=== PATIENT | female | born 1955 | race Two or more races ===

== ENCOUNTER 2021-01-05 14:57 | Inpatient (IN) | payer OTHER ==
[~2021-01-05] VITALS: Ht 167.6 cm; Wt 59.4 kg
[2021-01-05] MEDS ORDERED: NYST15PO4 TP (15:17)
[2021-01-05] MEDS ORDERED: BISA10SU11 RC (15:17)
[2021-01-05] MEDS ORDERED: NA P133E RC (15:17)
[2021-01-05] MEDS ORDERED: INSU100V7 SQ (15:17)
[2021-01-05] MEDS ORDERED: ACET-868 GT (15:17)
[2021-01-05] MEDS ORDERED: ACET100V5 GT (15:17)
[2021-01-05] MEDS ORDERED: DARB40VI SQ (15:17)
[2021-01-05] MEDS ORDERED: PANT40SU2 GT (15:17)
[2021-01-05] MEDS ORDERED: INSU100V27 SQ (15:17)
[2021-01-05] MEDS ORDERED: METO25TA20 GT (15:17)
[2021-01-05] MEDS ORDERED: AMLO-212 GT (15:17)
[2021-01-05] MEDS ORDERED: MAGN400O6 GT (15:17)
[2021-01-05] MEDS ORDERED: BLOO-668 IN (15:17)
[2021-01-05] MEDS ORDERED: ACET-2605 GT (15:17)
[2021-01-05] MEDS ORDERED: BUME2TAB7 GT (15:17)
[2021-01-05] MEDS ORDERED: HEPA50007 SQ (15:17)
[2021-01-05] MEDS ORDERED: CHLO473M5 MM (15:17)
[2021-01-05] MEDS ORDERED: CHLO118L6 TP (15:17)
[2021-01-05] MEDS ORDERED: IPRA3AMP23 IH ×2 (15:17→15:19)
[2021-01-05] MEDS ORDERED: NUT.237L67 GT (15:17)
[2021-01-05] MEDS ORDERED: ZINC56.713 TP (15:17)
[2021-01-05] MEDS ORDERED: LANS30CA56 GT (15:17)
[2021-01-05] MEDS ORDERED: FAMOTIDINE/PF INJ 20 MG/2 ML VIAL IV ONE ×2 (15:30→15:38)
[2021-01-05] MEDS ORDERED: ONDANSETRON HCL/PF 4 MG/2 ML VIAL IVP ONE (15:30)
[2021-01-05] MEDS ORDERED: IV NS 0.9% 500 ML BAG IV ONE (15:30)
[2021-01-05] MEDS ORDERED: ONDANSETRON HCL/PF 4 MG/2 ML VIAL ONE (15:34)
--- NOTE | 2021-01-05 15:49 | NUR ---
Patient jose alfredo [facility], sent by PMD for severe vomiting. On cool aerosol @ 3lpm, trach, cholectomy tube in placed, peg tube, and callahan cath. Connected to the monitor and pulse ox. Kept comfortable, will continue to monitor accordingly.
[2021-01-05 16:17] LABS: BASOPHILS % (AUTO) 0.3 % (0.0-2.0); EOSINOPHILS % (AUTO) 5.6 % (0.0-6.0); HEMATOCRIT 33 % (33-45); LYMPHOCYTES # (AUTO) 1.2 K/uL (0.8-4.8); LYMPHOCYTES % (AUTO) 11.6 % (20.0-44.0); MEAN CORPUSCULAR HGB CONC 33 g/dl (31.0-36.0); MEAN CORPUSCULAR VOLUME 104 fL (82-100); MONOCYTES # (AUTO) 0.7 K/uL (0.1-1.30); MONOCYTES % (AUTO) 6.5 % (2.0-12.0); NEUTROPHILS # (AUTO) 7.9 K/uL (1.8-8.9); PLATELET COUNT (AUTO) 199 K/uL (150-450); RED BLOOD CELL COUNT(AUTO) 3.18 MIL/uL (4.0-5.2); WHITE BLOOD COUNT (AUTO) 10.4 K/uL (4.3-11.0)
[2021-01-05 16:24] LABS: BILIRUBIN,URINE SMALL (NEGATIVE); COLOR,URINE YELLOW (YELLOW); LEUKOCYTE ESTERASE ,URINE LARGE (NEGATIVE); NITRITE, URINE POSITIVE (NEGATIVE); PROTEIN,URINE >=300 mg/dl (NEGATIVE); UGLUCOSE NEGATIVE (NEGATIVE); UROBILINOGEN,URINE 0.2 EU/dL (0.2)
[2021-01-05 16:34] LABS: ALBUMIN 3.3 g/dL (3.4-5.0); BACTERIA,URINE 4+ /HPF (None Seen); BILIRUBIN,DIRECT 0.2 mg/dL (0.0-0.2); BILIRUBIN,TOTAL 0.6 mg/dL (0.2-1.0); CALCIUM, SERUM 10.9 mg/dL (8.5-10.1); CREATININE 4.4 mg/dL (0.6-1.3); POTASSIUM 3.2 mmol/L (3.5-5.1); RBC,URINE TOO NUMEROUS TO COUN /HPF (0-2); SQUAMOUS EPITHELIAL CELL,UR 0-2 /HPF (None Seen); TOTAL PROTEIN, SERUM 9.2 g/dL (6.4-8.2); WBC,URINE TOO NUMEROUS TO COUN /HPF (0-3)
[2021-01-05 16:43] LABS: EOSINOPHILS % (MANUAL) 8 % (0-4); LYMPHOCYTES % (MANUAL) 11 % (16-48); MONOCYTES % (MANUAL) 6 % (0-11.0); NEUTROPHILS % (MANUAL) 75 (42-76)
[2021-01-05] MEDS ORDERED: CEFTRIAXONE 1GM BAG (ER ONLY) 50 ML IV ONE (16:52)
[2021-01-05] MEDS ORDERED: CEFTRIAXONE 1GM BAG (ER ONLY) 1 GM/50 ML PIGGYBACK IV ONE (17:00)
--- NOTE | 2021-01-05 21:20 | NUR ---
SUP CALLED FOR BED
--- NOTE | 2021-01-05 21:26 | NUR ---
ROOM 314-1
[2021-01-05] MEDS ORDERED: ONDANSETRON HCL/PF 4 MG/2 ML VIAL IVP PRN (21:30)
[2021-01-05] MEDS ORDERED: Z GUARD REMEDY 2 OZ OINT TP PRN (21:30)
[2021-01-05] MEDS ORDERED: ACETAMINOPHEN 650 MG/SUPP.RECT RC PRN (21:30)
--- NOTE | 2021-01-05 21:37 | NUR ---
Pt is going up to unit in [facility] with emtr and rn at bedside w/ acls protocol. NAD noted during transport.
--- NOTE | 2021-01-05 21:37 | NUR ---
report given to niraj by Steven Cabrales.
[2021-01-05 21:40] VITALS: BP 139/69
--- NOTE | 2021-01-05 21:40 | NUR ---
RN Admitting/Opening Notes Patient was brought in to the unit via gurney to the unit at approximately 2140. Patient was transferred to the bed from the [place]. Patient was oriented to the staff and room. Patient's alert and non-verbal. Patient's on cool aerosol at 31pm with no respiratory distress noted. Patient has an IV access on her right hand gauge #18. Patient's in no acute distress at this time. Safety measures in place: Bed locked, bed alarm on, side rails upx3, and call light within reach of the patient. Will continue to monitor the patient.
--- NOTE | 2021-01-05 21:47 | NUR ---
REPORT GIVEN BY TED PATIENT ADMITTED TO HOSPITAL
--- NOTE | 2021-01-05 21:49 | NUR ---
NURSING COMMUTATOR REPAIRER FOR ROOM ASSISGNEMENT.
[2021-01-05] MEDS ORDERED: DEXTROSE 50%-WATER 50 ML DISP.SYRIN IV PRN (22:00)
[2021-01-05] MEDS: BLOOD SUGAR DIAGNOSTIC 1 EACH STRIP IN SCH (22:46)
[2021-01-05] MEDS: INSULIN REGULAR, HUMAN 100 UNIT/ML 3 ML VIAL SQ PRN (22:49)
[2021-01-06] MEDS: IV NS 0.9% 1,000 ML IV PRN ×2 (04:01→11:34)
[2021-01-06] MEDS: INSULIN REGULAR, HUMAN 100 UNIT/ML 3 ML VIAL SQ PRN ×3 (06:17→21:46)
[2021-01-06 06:49] LABS: BASOPHILS % (AUTO) 0.4 % (0.0-2.0); EOSINOPHILS % (AUTO) 6.7 % (0.0-6.0); HEMATOCRIT 29 % (33-45); HEMOGLOBIN 10.1 g/dL (11.5-14.8); LYMPHOCYTES # (AUTO) 1.4 K/uL (0.8-4.8); LYMPHOCYTES % (AUTO) 13.4 % (20.0-44.0); MEAN CORPUSCULAR HGB CONC 34 g/dl (31.0-36.0); MEAN CORPUSCULAR VOLUME 103 fL (82-100); MONOCYTES # (AUTO) 0.7 K/uL (0.1-1.30); MONOCYTES % (AUTO) 6.3 % (2.0-12.0); NEUTROPHILS # (AUTO) 7.7 K/uL (1.8-8.9); NEUTROPHILS % (AUTO) 73.2 % (43.0-81.0); PLATELET COUNT (AUTO) 174 K/uL (150-450); RED BLOOD CELL COUNT(AUTO) 2.83 MIL/uL (4.0-5.2); WHITE BLOOD COUNT (AUTO) 10.5 K/uL (4.3-11.0)
[2021-01-06] MEDS: BLOOD SUGAR DIAGNOSTIC 1 EACH STRIP IN SCH ×4 (07:22→21:45)
[2021-01-06 07:43] LABS: BILIRUBIN,TOTAL 0.5 mg/dL (0.2-1.0); CALCIUM, SERUM 10.2 mg/dL (8.5-10.1); CREATININE 4.9 mg/dL (0.6-1.3); PHOSPHORUS 4.4 mg/dL (2.5-4.9); POTASSIUM 3.5 mmol/L (3.5-5.1); TOTAL PROTEIN, SERUM 8.5 g/dL (6.4-8.2)
[2021-01-06 07:58] VITALS: BP 116/64
--- NOTE | 2021-01-06 08:17 | NUR ---
Oxygen flow decreased from 3 lpm to 2 lpm o2 flow due to 100% saturation. no increase work of breathing noted. Addendum: 01/06/21 at 0818 by DESTINEY GUEVARA RT Amended: Links added.
[2021-01-06] MEDS ORDERED: FAMOTIDINE/PF INJ 20 MG/2 ML VIAL IV SCH (09:00)
[2021-01-06] MEDS ORDERED: ENOXAPARIN SODIUM 30 MG/0.3 ML DISP.SYRIN SQ SCH ×3 (09:00)
[2021-01-06] MEDS: FAMOTIDINE/PF INJ 20 MG/2 ML VIAL IV SCH (09:34)
--- NOTE | 2021-01-06 09:54 | NUR ---
WOUND CARE CONSULT: PT PRESENTS WITH MULTIPLE SKIN ISSUES INCLUDING RASHES WITH OPEN SKIN TO BREASTFOLDS AND GLUTEAL CREASE/BUTTOCKS WELL DEEP TISSUE INJURIES/OPEN BLISTERS TO LEFT BUTTOCK AND THIGH AND RT BUTTOCK, PRESENT ON ADMISSION. RECOMMENDATIONS MADE FOR SKIN PROTECTION AND WOUND CARE. DISCUSSED WITH NURSING STAFF. PT NOTED TO HAVE FRAGILE SKIN WHICH TEARS AND PEELS EASILY. COLLECTION TUBE WITH DRAINAGE BAG NOTED TO RT FLANK, PRESENT ON ADMISSION. MD IN AGREEMENT WITH PLAN OF CARE.
--- NOTE | 2021-01-06 12:00 | NUR ---
m/s diamond selector: md visit seen and examined by dr. quiroz at this time.
--- NOTE | 2021-01-06 12:00 | NUR ---
m/s patent legal assistant: notes christelle espinoza (daughter) notified re: hd tx and provided telephone consent with another nurse as a witness. awaiting order.
--- NOTE | 2021-01-06 14:30 | NUR ---
m/s pv design engineer: nephro consult seen by dr. rosa and will order hd tx and will call his nurse to do it as stated.
[2021-01-06] MEDS: CEFTRIAXONE 1 G in IV D5W 50 ML IV SCH (15:47)
[2021-01-06] MEDS: CLOTRIMAZOLE 1% 15 GM TUBE TP SCH (16:45)
[2021-01-06] MEDS: BUMETANIDE (1 MG) 1 MG TABLET PO SCH (16:45)
--- NOTE | 2021-01-06 16:55 | NUR ---
m/s expressive therapist: notes bs check 150, insulin held due to npo status, pt to get tube feeding when available/delivered to floor. will continue to monitor.
--- NOTE | 2021-01-06 17:50 | NUR ---
m/s viscose cellar worker: notes hd nurse preparing pt's for hd tx at this time.
[2021-01-06 17:53] VITALS: BP 128/64
[2021-01-06] MEDS: ACETYLCYSTEINE 10% SOLN 400 MG/4 ML VIAL IH SCH (18:00)
--- NOTE | 2021-01-06 19:00 | NUR ---
m/s supervisor paper machine: notes hd tx in progress. report given to andrew (rn) for continuity of care.
--- NOTE | 2021-01-06 19:00 | NUR ---
MS RN OPENING NOTE RECEIVED PT AWAKE IN BED. A/ NONVERBAL. PT ON 3LOXYGEN NC. NO SOB NOTED. NO S/S OF RESPIRATORY DISTRESS. PT IS BR. HEMODIALYSIS GOING ON AT THIS TIME, NO C/O PAIN AT THIS TIME. IV ACCESS ON R HAND #18 SL. IV IS INTACT, PATENT, AND FLUSHING WELL. SAFETY MEASURES MAINTAINED. BED IN LOWEST LOCKED POSITION, HOB ELEVATED, SIDE RAILS UP X2. CALL LIGHT AND TABLE WITHIN REACH. WILL CONTINUE WITH PLAN OF CARE.
[2021-01-06] MEDS: CHLORHEXIDINE GLUCONATE 15 ML UDC MM SCH (21:36)
[2021-01-06] MEDS: METOPROLOL TARTRATE 25 MG TABLET GT SCH (21:38)
[2021-01-06] MEDS: HEPARIN SODIUM, PORCINE 5000 UNITS/1 ML VIAL SQ SCH (21:38)
[2021-01-06] MEDS: NEPRO 1,000 ML BOTTLE GT PRN (21:51)
[2021-01-07] MEDS: ACETYLCYSTEINE 10% SOLN 400 MG/4 ML VIAL IH SCH ×4 (05:47→18:00)
[2021-01-07] MEDS: BLOOD SUGAR DIAGNOSTIC 1 EACH STRIP IN SCH ×4 (06:07→22:11)
[2021-01-07] MEDS: INSULIN REGULAR, HUMAN 100 UNIT/ML 3 ML VIAL SQ PRN ×3 (06:10→17:49)
[2021-01-07 06:14] LABS: BASOPHILS % (AUTO) 0.4 % (0.0-2.0); EOSINOPHILS % (AUTO) 6.5 % (0.0-6.0); HEMATOCRIT 29 % (33-45); LYMPHOCYTES # (AUTO) 1.2 K/uL (0.8-4.8); LYMPHOCYTES % (AUTO) 13.4 % (20.0-44.0); MEAN CORPUSCULAR HGB CONC 35 g/dl (31.0-36.0); MEAN CORPUSCULAR VOLUME 104 fL (82-100); MONOCYTES # (AUTO) 0.5 K/uL (0.1-1.30); MONOCYTES % (AUTO) 5.6 % (2.0-12.0); NEUTROPHILS # (AUTO) 6.4 K/uL (1.8-8.9); NEUTROPHILS % (AUTO) 74.1 % (43.0-81.0); PLATELET COUNT (AUTO) 169 K/uL (150-450); RED BLOOD CELL COUNT(AUTO) 2.77 MIL/uL (4.0-5.2); WHITE BLOOD COUNT (AUTO) 8.6 K/uL (4.3-11.0)
[2021-01-07] MEDS: IV NS 0.9% 1,000 ML IV PRN (06:28)
--- NOTE | 2021-01-07 06:30 | NUR ---
RN CLOSING NOTE PT IS AWAKE IN BED, STABLE ALL SHIFT. WILL ENDORSE TO DAY AM NURSE
[2021-01-07 06:45] LABS: CALCIUM, SERUM 9.3 mg/dL (8.5-10.1); CREATININE 2.9 mg/dL (0.6-1.3); PHOSPHORUS 3.2 mg/dL (2.5-4.9); POTASSIUM 3.1 mmol/L (3.5-5.1)
--- NOTE | 2021-01-07 07:17 | NUR ---
RN OPENING NOTE- PT IS ASLEEP. PT ON 3L OXYGEN TRACH AEROSOL. NO SOB NOTED. NO S/S OF RESPIRATORY DISTRESS. PT IS BR. . IV ACCESS ON R HAND #18 SL. IV IS INTACT, PATENT, AND FLUSHING WELL. SAFETY MEASURES MAINTAINED. BED IN LOWEST LOCKED POSITION, HOB ELEVATED, SIDE RAILS UP X2. CALL LIGHT AND TABLE WITHIN REACH. WILL CONTINUE WITH PLAN OF CARE.
[2021-01-07 08:00] VITALS: BP 154/72
[2021-01-07 08:06] LABS: IMMUNOGLOBULIN A, SERUM 336 mg/dL (87-352); IMMUNOGLOBULIN G, SERUM 2911 mg/dL (586-1602); IMMUNOGLOBULIN M, SERUM 101 mg/dL (26-217)
[2021-01-07] MEDS: CHLORHEXIDINE GLUCONATE 15 ML UDC MM SCH ×2 (08:40→20:22)
[2021-01-07] MEDS: METOPROLOL TARTRATE 25 MG TABLET GT SCH ×2 (08:41→20:22)
[2021-01-07] MEDS: BUMETANIDE (1 MG) 1 MG TABLET PO SCH (08:41)
[2021-01-07] MEDS: AMLODIPINE BESYLATE 5 MG TABLET GT SCH (08:44)
[2021-01-07] MEDS: PANTOPRAZOLE 40 MG/PACK PACK GT SCH (08:44)
[2021-01-07] MEDS: FAMOTIDINE/PF INJ 20 MG/2 ML VIAL IV SCH (08:45)
[2021-01-07] MEDS: HEPARIN SODIUM, PORCINE 5000 UNITS/1 ML VIAL SQ SCH ×2 (08:46→20:27)
[2021-01-07] MEDS: CLOTRIMAZOLE 1% 15 GM TUBE TP SCH ×2 (08:58→17:50)
[2021-01-07] MEDS: NYSTATIN TOP POWDER 15 GM BOTTLE TP SCH (08:59)
[2021-01-07] MEDS: ZINC OXIDE 56.7 GM TUBE TP SCH (08:59)
[2021-01-07] MEDS ORDERED: FAMOTIDINE/PF INJ 20 MG/2 ML VIAL IV SCH (09:00)
--- NOTE | 2021-01-07 10:20 | NUR ---
RN NOTE- PT TRACH SX AT THIS TIME . SECRETIONS REMOVED. TOLERATED WELL
[2021-01-07 11:07] LABS: *SPE A/G RATIO 0.6 (0.7-1.7); *SPE ALPHA-1-GLOBULIN 0.3 g/dL (0.0-0.4); *SPE ALPHA-2-GLOBULIN 0.9 g/dL (0.4-1.0); *SPE BETA GLOBULIN 1.1 g/dL (0.7-1.3); *SPE M-SPIKE Not Observed g/dL (Not Observed)
--- NOTE | 2021-01-07 13:09 | NUR ---
RN NOTE- PT TRACH SX AT THIS TIME . SECRETIONS REMOVED. TOLERATED WELL
[2021-01-07] MEDS: POTASSIUM CL. PREMIX PERIPHER. 50 ML IV SCH ×3 (14:53→17:13)
--- NOTE | 2021-01-07 15:02 | NUR ---
WV K+ 3.1. KCL SUPPLEMENTATION 30MEQ ON ORDER. FIRST BAG INITIATED
[2021-01-07 15:50] VITALS: BP 138/77
[2021-01-07] MEDS: CEFTRIAXONE 1 G in IV D5W 50 ML IV SCH (17:58)
--- NOTE | 2021-01-07 18:28 | NUR ---
RN CLOSING NOTE- PT IS ASLEEP. PT ON 3L OXYGEN TRACH AEROSOL. NO SOB NOTED. NO S/S OF RESPIRATORY DISTRESS. PERIODICALLY SX TODAY TO REMOVE SECRETIONS. PT IS BR. . IV ACCESS ON R HAND #18 SL. IV IS INTACT, PATENT, AND FLUSHING WELL. SAFETY MEASURES MAINTAINED. BED IN LOWEST LOCKED POSITION, HOB ELEVATED, SIDE RAILS UP X2. CALL LIGHT AND TABLE WITHIN REACH. WILL GIVE REPORT TO ANASTASIA JOHNSON.
--- NOTE | 2021-01-07 19:28 | NUR ---
RT NOTE TX NOT GIVEN DUE TO PENDING PCR RESULTS. SX DONE, TRACH SECURED AND PATENT. NO RESPIRATORY DISTRESS NOTED.
--- NOTE | 2021-01-07 19:38 | NUR ---
MS RN OPENING NOTE PATIENT IN BED, EYE OPENING, NON-VERBAL. NO S/S OF APPARENT DISTRESS --TOLERATING TRACH IN 3LPM O2 PATIENT HAVING A LOT OF SECRETIONS. NOT EXHIBITING PAIN VIA FLACC. IV NS RUNNING @50 ML/HR. G-TUBE RUNNING NEPRO @40ML/HR. SIEGEL DRAINING JASMYN COLORED URINE. SAFETY IN PLACE. WILL CONTINUE TO MONITOR.
[2021-01-07 20:00] VITALS: BP 140/71
[2021-01-08] MEDS: ACETYLCYSTEINE 10% SOLN 400 MG/4 ML VIAL IH SCH ×3 (01:00→20:04)
--- NOTE | 2021-01-08 04:08 | NUR ---
ms rn notes s3izpsd of suctioning done.
[2021-01-08] MEDS: IV NS 0.9% 1,000 ML IV PRN (04:29)
[2021-01-08 06:39] LABS: BASOPHILS % (AUTO) 0.4 % (0.0-2.0); EOSINOPHILS % (AUTO) 6.1 % (0.0-6.0); HEMATOCRIT 31 % (33-45); HEMOGLOBIN 10.9 g/dL (11.5-14.8); LYMPHOCYTES # (AUTO) 1.3 K/uL (0.8-4.8); LYMPHOCYTES % (AUTO) 17.9 % (20.0-44.0); MEAN CORPUSCULAR HGB CONC 35 g/dl (31.0-36.0); MEAN CORPUSCULAR VOLUME 103 fL (82-100); MONOCYTES # (AUTO) 0.4 K/uL (0.1-1.30); MONOCYTES % (AUTO) 5.9 % (2.0-12.0); NEUTROPHILS # (AUTO) 5.2 K/uL (1.8-8.9); NEUTROPHILS % (AUTO) 69.7 % (43.0-81.0); PLATELET COUNT (AUTO) 165 K/uL (150-450); RED BLOOD CELL COUNT(AUTO) 3.05 MIL/uL (4.0-5.2); WHITE BLOOD COUNT (AUTO) 7.5 K/uL (4.3-11.0)
[2021-01-08] MEDS: BLOOD SUGAR DIAGNOSTIC 1 EACH STRIP IN SCH ×4 (07:13→22:00)
[2021-01-08] MEDS: INSULIN REGULAR, HUMAN 100 UNIT/ML 3 ML VIAL SQ PRN ×2 (07:17→12:53)
--- NOTE | 2021-01-08 07:23 | NUR ---
blood sugar 184. given 3 units of insulin per sliding scale.
[2021-01-08 07:36] LABS: POTASSIUM 3.6 mmol/L (3.5-5.1)
[2021-01-08 07:37] LABS: CALCIUM, SERUM 9.5 mg/dL (8.5-10.1); MAGNESIUM 2.2 mg/dL (1.8-2.4); PHOSPHORUS 3.8 mg/dL (2.5-4.9)
--- NOTE | 2021-01-08 07:48 | NUR ---
closing note rn report given to Katerina for cont. of care.
--- NOTE | 2021-01-08 07:55 | NUR ---
MS/RN OPENING NOTE RECEIVED PATIENT IN BED, EYE OPENING, NON-VERBAL. NO S/S OF APPARENT DISTRESS --TOLERATING TRACH WITH 3LPM OF O2. NOT EXHIBITING PAIN VIA FLACC. IV ACCESS ON LEFT FOREARM #20G WITH NS RUNNING @50 ML/HR. G-TUBE RUNNING NEPRO @40ML/HR. SIEGEL DRAINING JASMYN COLORED URINE. SAFETY MEASURES IN PLACE. WILL CONTINUE TO MONITOR.
[2021-01-08 08:11] VITALS: BP 145/76
--- NOTE | 2021-01-08 08:28 | NUR ---
RT Pt received trached on T-Piece with adequate SpO2. BVM and spare trach by bedside. No SOB or respiratory distress noted. Addendum: 01/08/21 at 1614 by KWABENA SWAN RT Amended: Links added.
[2021-01-08] MEDS: FAMOTIDINE/PF INJ 20 MG/2 ML VIAL IV SCH (08:39)
[2021-01-08] MEDS: CHLORHEXIDINE GLUCONATE 15 ML UDC MM SCH ×2 (08:39→20:59)
[2021-01-08] MEDS: PANTOPRAZOLE 40 MG/PACK PACK GT SCH (08:39)
[2021-01-08] MEDS: BUMETANIDE (1 MG) 1 MG TABLET PO SCH (08:40)
[2021-01-08] MEDS: AMLODIPINE BESYLATE 5 MG TABLET GT SCH (08:40)
[2021-01-08] MEDS: METOPROLOL TARTRATE 25 MG TABLET GT SCH ×2 (08:40→21:00)
[2021-01-08] MEDS: HEPARIN SODIUM, PORCINE 5000 UNITS/1 ML VIAL SQ SCH ×2 (08:42→21:06)
[2021-01-08] MEDS: NYSTATIN TOP POWDER 15 GM BOTTLE TP SCH (08:45)
[2021-01-08] MEDS: CLOTRIMAZOLE 1% 15 GM TUBE TP SCH ×2 (08:45→18:25)
[2021-01-08] MEDS: ZINC OXIDE 56.7 GM TUBE TP SCH (08:45)
[2021-01-08] MEDS ORDERED: DOSING PER PHARMACY-AMIKACI IV XX PRN (15:00)
--- NOTE | 2021-01-08 15:10 | NUR ---
MS/RN NOTES- CONTACT ISOLATION LABS CALLED AND NOTIFIED THAT PATIENT HAS TESTED POSITIVE FOR CRE IN THE URINE. NOTIFIED DR. GRACIELA VÁZQUEZ AND THE MD FOR INFECTION CONTROL. PATIENT IS NOW ON CONTACT ISOLATION. WILL CONTINUE TO MONITOR.
[2021-01-08] MEDS ORDERED: AMIKACIN 300 MG in IV D5W 100 ML IV PRN (15:30)
[2021-01-08] MEDS ORDERED: AMIKACIN 300 MG in IV D5W 100 ML IV ONE (16:00)
--- NOTE | 2021-01-08 19:30 | NUR ---
MS RN OPENING NOTE RECEIVED PATIENT IN BED AWAKE BUT NON-VERBAL. GETTING HEMODIALYSIS AT THIS TIME. NO S/S OF APPARENT DISTRESS IN TRACH 3LPM OF OXYGEN. NOT EXHIBITING PAIN. BY THE BEDSIDE. SIEGEL DRAINING JASMYN URINE. NO FLUIDS RUNNING AT THIS TIME. G-TUBE CLAMPED AT THIS TIME. SAFETY IN PLACE. WILL CONTINUE TO MONITOR.
--- NOTE | 2021-01-08 19:37 | NUR ---
MS/RN CLOSING NOTE PATIENT IN BED, EYE OPENING, NON-VERBAL. NO S/S OF APPARENT DISTRESS --TOLERATING TRACH WITH 3LPM OF O2. NOT EXHIBITING PAIN VIA FLACC. IV ACCESS ON LEFT FOREARM #20G WITH NS RUNNING @50 ML/HR. G-TUBE RUNNING NEPRO @40ML/HR. SIEGEL CATHETER REPLACED TODAY AT 1400 PER MD ORDER, DRAINING JASMYN COLORED URINE. DOING HEMODIALYSIS RIGHT NOW. SAFETY MEASURES IN PLACE. WILL ENDORSE TO THE NEXT SHIFT FOR NIKOLE.
[2021-01-08 20:00] VITALS: BP_SYST 118
--- NOTE | 2021-01-08 20:35 | NUR ---
MS RN NOTE HD FINISHED AT THIS TIME. 578 (0.6) CC OUT.
[2021-01-08] MEDS: NEPRO 1,000 ML BOTTLE GT PRN (20:59)
--- NOTE | 2021-01-08 22:10 | NUR ---
rn note amikacin random ordered STAT.
[2021-01-09] MEDS: ACETYLCYSTEINE 10% SOLN 400 MG/4 ML VIAL IH SCH ×4 (00:36→19:53)
[2021-01-09] MEDS: IV NS 0.9% 1,000 ML IV PRN (03:42)
[2021-01-09] MEDS: BLOOD SUGAR DIAGNOSTIC 1 EACH STRIP IN SCH ×3 (06:08→17:37)
[2021-01-09] MEDS: INSULIN REGULAR, HUMAN 100 UNIT/ML 3 ML VIAL SQ PRN ×3 (06:35→17:37)
--- NOTE | 2021-01-09 06:39 | NUR ---
blood sugar 199. given regular insulin 3 Units.
[2021-01-09 07:21] LABS: CALCIUM, SERUM 8.1 mg/dL (8.5-10.1); CREATININE 1.7 mg/dL (0.6-1.3)
--- NOTE | 2021-01-09 07:24 | NUR ---
no significant change. report given to Katerina for cont. of care
[2021-01-09 07:30] LABS: POTASSIUM 2.8 mmol/L (3.5-5.1)
--- NOTE | 2021-01-09 07:42 | NUR ---
MS/RN OPENING NOTE RECEIVED PATIENT IN BED, EYE OPENING, NON-VERBAL. NO S/S OF APPARENT DISTRESS --TOLERATING TRACH WITH 5LPM OF O2. NOT EXHIBITING PAIN VIA FLACC. IV ACCESS ON LEFT FOREARM #20G WITH NS RUNNING @50 ML/HR. G-TUBE RUNNING NEPRO @40ML/HR. SIEGEL DRAINING JASMYN COLORED URINE. SAFETY MEASURES IN PLACE. WILL CONTINUE TO MONITOR.
[2021-01-09] MEDS ORDERED: FAMOTIDINE (20 MG) 20 MG TABLET GT SCH (09:00)
[2021-01-09] MEDS: BUMETANIDE (1 MG) 1 MG TABLET PO SCH (09:20)
[2021-01-09] MEDS: PANTOPRAZOLE 40 MG/PACK PACK GT SCH (09:20)
[2021-01-09] MEDS: CHLORHEXIDINE GLUCONATE 15 ML UDC MM SCH (09:20)
[2021-01-09] MEDS: AMLODIPINE BESYLATE 5 MG TABLET GT SCH ×2 (09:21→20:30)
[2021-01-09] MEDS: METOPROLOL TARTRATE 25 MG TABLET GT SCH ×2 (09:21→19:51)
[2021-01-09] MEDS: HEPARIN SODIUM, PORCINE 5000 UNITS/1 ML VIAL SQ SCH (09:22)
[2021-01-09] MEDS: POTASSIUM CL. PREMIX PERIPHER. 50 ML IV SCH ×5 (09:54→14:04)
[2021-01-09] MEDS: CLOTRIMAZOLE 1% 15 GM TUBE TP SCH ×2 (09:54→17:37)
[2021-01-09] MEDS: ZINC OXIDE 56.7 GM TUBE TP SCH (09:54)
[2021-01-09] MEDS: NYSTATIN TOP POWDER 15 GM BOTTLE TP SCH (09:55)
[2021-01-09] MEDS ORDERED: AMIK250V13 IV (12:23)
--- NOTE | 2021-01-09 18:51 | NUR ---
MS/RN OPENING NOTE PATIENT IN BED, EYE OPENING, NON-VERBAL. NO S/S OF APPARENT DISTRESS --TOLERATING TRACH WITH 5LPM OF O2. NOT EXHIBITING PAIN VIA FLACC. IV ACCESS ON LEFT FOREARM #20G WITH NS RUNNING @50 ML/HR. G-TUBE RUNNING NEPRO @40ML/HR. SIEGEL DRAINING JASMYN COLORED URINE. SAFETY MEASURES IN PLACE. PATIENT IS MEDICALLY STABLE FOR DISCHARGE BACK TO [facility], ENDORSEMENTS ALREADY CALLED IN TO DOTTIE URRUTIA CHARGE NURSE AT THE [facility] AT 1600. COMPOSITION STONE APPLICATOR TIME IS AT 1900. WILL ENDORSE PATIENT TO THE NEXT SHIFT. Addendum: 01/09/21 at 1853 by BETSY MARTINES RN ERROR
--- NOTE | 2021-01-09 18:53 | NUR ---
MS/RN CLOSING NOTE PATIENT IN BED, EYE OPENING, NON-VERBAL. NO S/S OF APPARENT DISTRESS --TOLERATING TRACH WITH 5LPM OF O2. NOT EXHIBITING PAIN VIA FLACC. IV ACCESS ON LEFT FOREARM #20G WITH NS RUNNING @50 ML/HR. G-TUBE RUNNING NEPRO @40ML/HR. SIEGEL DRAINING JASMYN COLORED URINE. SAFETY MEASURES IN PLACE. PATIENT IS MEDICALLY STABLE FOR DISCHARGE BACK TO [facility], ENDORSEMENTS ALREADY CALLED IN TO DOTTIE URRUTIA CHARGE NURSE AT THE [facility] AT 1600. CONTROL SYSTEMS SPECIALIST TIME IS AT 1900. WILL ENDORSE PATIENT TO THE NEXT SHIFT.
--- NOTE | 2021-01-09 20:40 | NUR ---
RN NOTES BP 162/84 77 GIVEN METOPROLOL EARLIER, GIVEN NORVASC 5 MG VIA GT, RECHECKED BP 149/73. FOR DISCHARGE TONIGHT, AMBULANCE AT THE BEDSIDE, RT AT THE BEDSIDE, NO DISTRESS, PERIPHERAL IV LINE KEPT TO CONTINUE ANTIBIOTIC, SIEGEL CATHETER IN PLACE. NO BELONGINGS.
[2021-01-09 20:41] VITALS: BP 149/73
[2021-01-27] MEDS ORDERED: INSULIN REGULAR, HUMAN 100 UNIT/ML 3 ML VIAL SQ PRN (15:00)
[2021-01-27] MEDS ORDERED: DEXTROSE 50%-WATER 50 ML DISP.SYRIN IV PRN (15:00)
[2021-01-27] MEDS ORDERED: BLOOD SUGAR DIAGNOSTIC 1 EACH STRIP IN SCH (17:30)
== END 2021-01-09 20:40 | DRG 689 ==
LOC: ER 15:05 → TELE 21:35 → MED 21:52
PROVIDERS: ADMIT Hospitalist; ATTEND Nurse Practitioner Acute Care
PROC: 5A1D70Z Performance of Urinary Filtration, Intermittent, Less than 6 Hours Per Day (ICD-10-PCS; principal; 2021-01-06)
DX: N39.0 Urinary tract infection, site not specified (principal); R53.2 Functional quadriplegia; N18.6 End stage renal disease; J96.10 Chronic respiratory failure, unspecified whether with hypoxia or hypercapnia; J98.11 Atelectasis; I12.0 Hypertensive chronic kidney disease with stage 5 chronic kidney disease or end stage renal disease; K57.92 Diverticulitis of intestine, part unspecified, without perforation or abscess without bleeding; J90 Pleural effusion, not elsewhere classified; G93.49 Other encephalopathy; M84.48XA Pathological fracture, other site, initial encounter for fracture; Z16.19 Resistance to other specified beta lactam antibiotics; E86.0 Dehydration; E11.22 Type 2 diabetes mellitus with diabetic chronic kidney disease; E83.52 Hypercalcemia; Z66 Do not resuscitate; Z74.01 Bed confinement status; Z86.73 Personal history of transient ischemic attack (TIA), and cerebral infarction without residual deficits; Z87.440 Personal history of urinary (tract) infections; R13.10 Dysphagia, unspecified; Z93.1 Gastrostomy status; Z90.49 Acquired absence of other specified parts of digestive tract; Z98.2 Presence of cerebrospinal fluid drainage device; Z99.2 Dependence on renal dialysis; Z20.822 Contact with and (suspected) exposure to COVID-19; E87.6 Hypokalemia; Z93.0 Tracheostomy status; R16.0 Hepatomegaly, not elsewhere classified; K59.00 Constipation, unspecified; B96.1 Klebsiella pneumoniae [K. pneumoniae] as the cause of diseases classified elsewhere; Z79.4 Long term (current) use of insulin; D53.9 Nutritional anemia, unspecified
CPT/HCPCS: 31720; 36415; 71045-TC; 76770-TC; 80048-TC; 80053-TC; 80061-TC; 80076-TC; 80150; 81001; 82784; 82962-TC; 83690-TC; 83735-TC; 83970; 84100-TC; 84155; 84165; 85025-TC; 86334; 86706; 87040-TC; 87081-TC; 87086-TC; 87186-TC; 87340; 90935-TC; 94640-TC; 94664-TC; 94799-TC; A4623; A6253; A7526; C9803; G0378; J0278; J0696; J1644; J1815; J2405; J3480; J3490; J7030; J7040; J7050; J7060; U0003

== ENCOUNTER 2021-01-27 11:27 | Inpatient (IN) | payer OTHER ==
[~2021-01-27] VITALS: Ht 167.6 cm; Wt 64.0 kg
[~2021-01-27 11:27] MED LIST: ACET-2605 GT; ACET-868 GT; ACET100V5 GT; AMIK250V13 IV; AMLO-212 GT; BISA10SU11 RC; BLOO-668 IN; BUME2TAB7 GT; CHLO118L6 TP; CHLO473M5 MM; DARB40VI SQ; HEPA50007 SQ; INSU100V27 SQ; INSU100V7 SQ; IPRA3AMP23 IH; LANS30CA56 GT; MAGN400O6 GT; METO25TA20 GT; NA P133E RC; NUT.237L67 GT; NYST15PO4 TP; PANT40SU2 GT; ZINC56.713 TP
--- NOTE | 2021-01-27 11:30 | NUR ---
leonel, from [facility], noticed vomitted blood x 5 today. On cool aerosol at 6lpm. connected to the monitor and pulse ox. Kept comfortable, will continue to monitor accordingly.
--- NOTE | 2021-01-27 11:55 | NUR ---
MOVE SHEET SUBMITTED.
[2021-01-27] MEDS ORDERED: PIPERACILLIN /TAZOBACTAM 3.375 G in IV D5W 50 ML IV ONE (12:00)
[2021-01-27] MEDS ORDERED: IV NS 0.9% 500 ML BAG IV ONE (12:00)
[2021-01-27] MEDS ORDERED: VANCOMYCIN 1 GM in IV D5W 250 ML IV ONE (12:00)
[2021-01-27] MEDS ORDERED: ZINC1CAP3 GT (12:03)
[2021-01-27] MEDS ORDERED: CRAN3875 GT (12:03)
[2021-01-27] MEDS ORDERED: FOLI0.8T23 GT (12:03)
[2021-01-27] MEDS ORDERED: AMIN30LI2 GT (12:03)
[2021-01-27] MEDS ORDERED: MENT71OI2 TP (12:06)
[2021-01-27 12:14] LABS: BASOPHILS # (AUTO) 0.1 K/uL (0.0-0.2); BASOPHILS % (AUTO) 0.8 % (0.0-2.0); EOSINOPHILS % (AUTO) 4.8 % (0.0-6.0); HEMATOCRIT 37 % (33-45); HEMOGLOBIN 12.3 g/dL (11.5-14.8); LYMPHOCYTES # (AUTO) 1.4 K/uL (0.8-4.8); LYMPHOCYTES % (AUTO) 17.2 % (20.0-44.0); MEAN CORPUSCULAR HGB CONC 33 g/dl (31.0-36.0); MEAN CORPUSCULAR VOLUME 106 fL (82-100); MONOCYTES # (AUTO) 0.6 K/uL (0.1-1.30); MONOCYTES % (AUTO) 7.8 % (2.0-12.0); NEUTROPHILS # (AUTO) 5.6 K/uL (1.8-8.9); NEUTROPHILS % (AUTO) 69.4 % (43.0-81.0); PLATELET COUNT (AUTO) 175 K/uL (150-450); RED BLOOD CELL COUNT(AUTO) 3.49 MIL/uL (4.0-5.2); WHITE BLOOD COUNT (AUTO) 8.1 K/uL (4.3-11.0)
[2021-01-27 12:25] LABS: CALCIUM, SERUM 9.4 mg/dL (8.5-10.1); CARBON DIOXIDE 23 mmol/L (21-32); CHLORIDE 105 mmol/L (98-107); CREATININE 2.7 mg/dL (0.6-1.3); GLUCOSE 165 mg/dL (74-106); POTASSIUM 3.1 mmol/L (3.5-5.1); SODIUM SERUM 140 mmol/L (136-145); UREA NITROGEN, BLOOD 52 mg/dL (7-18)
[2021-01-27 12:32] LABS: ALANINE AMINOTRANSFERASE 17 U/L (12-78); ALKALINE PHOSPHATASE 113 U/L (46-116); ASPARTATE AMINOTRANSFERASE 21 U/L (15-37); BILIRUBIN,DIRECT 0.1 mg/dL (0.0-0.2); BILIRUBIN,TOTAL 0.4 mg/dL (0.2-1.0); TOTAL PROTEIN, SERUM 8.1 g/dL (6.4-8.2)
[2021-01-27 12:33] LABS: BILIRUBIN,URINE SMALL (NEGATIVE); COLOR,URINE YELLOW (YELLOW); LEUKOCYTE ESTERASE ,URINE Large (NEGATIVE); NITRITE, URINE Negative (NEGATIVE); PH,URINE 5.5 (5.0-8.0); PROTEIN,URINE >=300 mg/dl (NEGATIVE); UGLUCOSE Negative (NEGATIVE); UROBILINOGEN,URINE 0.2 EU/dL (0.2)
--- NOTE | 2021-01-27 12:49 | NUR ---
covid swab collected and sent to lab.
[2021-01-27 12:55] LABS: BACTERIA,URINE Moderate /HPF (None Seen); SQUAMOUS EPITHELIAL CELL,UR Few /HPF (None Seen); WBC,URINE 81-100 /HPF (0-3)
[2021-01-27 12:56] LABS: URINE AMORPHOUS URATE Many /HPF (None Seen)
--- NOTE | 2021-01-27 13:04 | NUR ---
Paged [facility], Dr. Contreras on-call. Awaiting for call back.
--- NOTE | 2021-01-27 14:15 | NUR ---
report given to Joseph JOHNSON for shannon.
[2021-01-27] MEDS ORDERED: ACETAMINOPHEN 325 MG TABLET PO PRN (14:30)
[2021-01-27] MEDS ORDERED: ONDANSETRON HCL/PF 4 MG/2 ML VIAL IVP PRN (14:30)
[2021-01-27] MEDS ORDERED: MORPHINE SULFATE INJ 2 MG/ML DISP.SYRIN IV PRN (14:30)
[2021-01-27] MEDS ORDERED: NEPRO VAN 237 ML CAN GT SCH (14:30)
[2021-01-27] MEDS ORDERED: ACETAMINOPHEN ES 500 MG TABLET GT PRN (14:30)
[2021-01-27] MEDS ORDERED: LABETALOL HCL IV 100MG VIAL IV PRN (15:00)
[2021-01-27] MEDS ORDERED: ALBUTEROL FS 2.5 MG/3 ML VIAL.NEB NEB PRN (15:00)
[2021-01-27] MEDS ORDERED: DEXTROSE 50%-WATER 50 ML DISP.SYRIN IV PRN (15:00)
[2021-01-27] MEDS ORDERED: IPRATROPIUM NEB FS 0.5 MG/2.5 ML AMPUL.NEB NEB PRN (15:00)
--- NOTE | 2021-01-27 15:15 | NUR ---
BRUSH CLEARER SURVEYING NOTE Received patient from ER via gurney, Patient is Alert to stimuli-not oriented-nonverbal, no respiratory distress, no SOB, on trach shiley 8 on 3 liters via NC. Has F/C 16F/10cc, Gtube, right upper chest dialysis permacath, Left forearm IV site 20G, Right AC IV 20g, MASD on perineal area scattered, MASD on sacro-coccyx scattered, Rash on back scattered. Head of bed maintained elevated 45 degrees. Cleaned and repositioned, Safety precautions implemented, bed locked in lowest position, call light within reach. v/s T 97.7 F, P 68, R 18, 02 100%, BP 177/80, Pain non verbal.
[2021-01-27] MEDS: ALBUTEROL FS 2.5 MG/3 ML VIAL.NEB NEB SCH ×3 (15:30→23:30)
[2021-01-27] MEDS: IPRATROPIUM NEB FS 0.5 MG/2.5 ML AMPUL.NEB NEB SCH ×3 (15:30→23:30)
[2021-01-27] MEDS: BLOOD SUGAR DIAGNOSTIC 1 EACH STRIP IN SCH ×3 (15:58→21:40)
[2021-01-27] MEDS: CEFEPIME 1 GM in IV D5W 50 ML IV SCH (17:32)
[2021-01-27 18:00] VITALS: BP 177/80
--- NOTE | 2021-01-27 18:00 | NUR ---
F/C Indwelling cath 16F/10cc changed today in aseptic technique, urine flowback with sediments. Procedure tolerated well.
[2021-01-27] MEDS: INSULIN REGULAR, HUMAN 100 UNIT/ML 3 ML VIAL SQ PRN ×2 (18:26→21:39)
[2021-01-27] MEDS: hydrALAZINE HCL IV 20 MG VIAL IV PRN (18:32)
--- NOTE | 2021-01-27 18:32 | NUR ---
RN NOTE B/P 177/80-Hydralazine IV PRN administered.
--- NOTE | 2021-01-27 18:55 | NUR ---
NOTCHED BLADE LOADER CLOSING NOTE Pt is awake, Alert avril stimuli, non oriented, non verbal. On T-Piece on 3 liters satting >95%. HOB maintained elevated, enteral feeding nephro 45cc/hr started, F/C in place, right upper chest permacath in place, IV site clean with no s/sx of infiltration. 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 Telereading sinus rhythm. Safety precautions implemented, bed locked in lowest position, call light within reach.
[2021-01-27] MEDS: NEPRO 1,000 ML BOTTLE GT SCH (19:02)
--- NOTE | 2021-01-27 19:30 | NUR ---
1930 albuterol and atrovent breathing tx not administered due to pending pcr
--- NOTE | 2021-01-27 19:33 | NUR ---
RN NOTE PATIENT IN ROOM WITH HEAD OF BED ELEVATED. AWAKE, ALERT TO STIMULI. NON VERBAL. ON T-PIECE 3L VIA NASAL CANNULA, NO SIGNS OF ACUTE DISTRESS. WITH GTUBE RUNNING NEPHRO @ 45CC/HR, POSITIVE PLACEMENT VIA AUSCULTATION. SIEGEL CATH PATENT AND INTACT DRAINING URINE VIA GRAVITY. RIGHT UPPER CHEST PERMACATH IN PLACE, DRESSING DRY. IV ACCESS ON LEFT AC AND RIGHT FOREARM, NO SIGNS OF INFILTRATION. BED LOCKED AND IN LOWEST POSITION. CALL LIGHT WITHIN REACH. ALL NEEDS ANTICIPATED.
[2021-01-27 20:00] VITALS: BP 129/54
[2021-01-27 21:15] LABS: HEMOGLOBIN 11.9 g/dL (11.5-14.8)
[2021-01-27] MEDS: METOPROLOL TARTRATE 25 MG TABLET GT SCH (21:21)
[2021-01-27] MEDS: PANTOPRAZOLE 40 MG/PACK PACK GT SCH (21:21)
[2021-01-27] MEDS: CHLORHEXIDINE GLUCONATE 15 ML UDC MM SCH (21:22)
[2021-01-27] MEDS: HEPARIN SODIUM, PORCINE 5000 UNITS/1 ML VIAL SQ SCH (21:22)
--- NOTE | 2021-01-27 23:30 | NUR ---
2330 albuterol and atrovent breathing tx not administered due to pending pcr
[2021-01-28] VITALS: BP 134/57
[2021-01-28] MEDS: ALBUTEROL FS 2.5 MG/3 ML VIAL.NEB NEB SCH ×6 (03:30→22:41)
[2021-01-28] MEDS: IPRATROPIUM NEB FS 0.5 MG/2.5 ML AMPUL.NEB NEB SCH ×6 (03:30→22:41)
--- NOTE | 2021-01-28 03:30 | NUR ---
0330 albuterol and atrovent breathing tx not administered due to pending pcr
[2021-01-28 04:00] VITALS: BP 135/57
--- NOTE | 2021-01-28 06:37 | NUR ---
RN NOTE PATIENT OBTUNDED, NON VERBAL. ON T-PIECE 3L VIA NASAL CANNULA, O2 SAT 100%. WITH GTUBE RUNNING NEPHRO @ 45CC/HR, NO RESIDUAL NOTED. SIEGEL CATH PATENT AND INTACT DRAINING URINE OUTPUT 50ML. RIGHT UPPER CHEST PERMACATH IN PLACE, DRESSING DRY. IV ACCESS ON LEFT AC AND RIGHT FOREARM, NO SIGNS OF INFILTRATION. TURNED AND REPOSITIONED. BED LOCKED AND IN LOWEST POSITION. CALL LIGHT WITHIN REACH. WILL ENDORSE TO AM SHIFT.
[2021-01-28 06:52] LABS: ALBUMIN 2.8 g/dL (3.4-5.0); BILIRUBIN,TOTAL 0.5 mg/dL (0.2-1.0); CALCIUM, SERUM 9.1 mg/dL (8.5-10.1); CREATININE 2.9 mg/dL (0.6-1.3); MAGNESIUM 2.7 mg/dL (1.8-2.4); PHOSPHORUS 4.2 mg/dL (2.5-4.9); TOTAL PROTEIN, SERUM 7.6 g/dL (6.4-8.2)
--- NOTE | 2021-01-28 07:19 | NUR ---
RN OPENING NOTE PATIENT IN BED, OBTUNDED, NON VERBAL. ON 3L VIA NASAL CANNULA WITH NO SIGNS OF LABORED BREATHING AT THIS TIME. GTUBE IN PLACE RUNNING NEPHRO AT 45 ML/HR, SIEGEL CATH IN PLACE. IV ACCESS ON LEFT AC AND RIGHT FOREARM. BED LOCKED AND IN LOWEST POSITION. CALL LIGHT WITHIN REACH. ALL SAFETY MEASURES IMPLEMENTED.
[2021-01-28 08:01] VITALS: BP 152/66
[2021-01-28] MEDS: BLOOD SUGAR DIAGNOSTIC 1 EACH STRIP IN SCH ×4 (08:18→21:21)
[2021-01-28] MEDS: CHLORHEXIDINE GLUCONATE 15 ML UDC MM SCH ×2 (08:22→20:57)
[2021-01-28] MEDS: CHLORHEXIDINE GLUCONATE 4% 118 ML BOTTLE TP SCH (08:23)
[2021-01-28] MEDS: PANTOPRAZOLE 40 MG/PACK PACK GT SCH ×2 (08:23→20:57)
[2021-01-28] MEDS: NYSTATIN TOP POWDER 15 GM BOTTLE TP SCH (08:23)
[2021-01-28] MEDS: BUMETANIDE (1 MG) 1 MG TABLET GT SCH (08:23)
[2021-01-28] MEDS: AMLODIPINE BESYLATE 5 MG TABLET GT SCH (08:24)
[2021-01-28] MEDS: METOPROLOL TARTRATE 25 MG TABLET GT SCH ×2 (08:24→20:57)
[2021-01-28] MEDS: HEPARIN SODIUM, PORCINE 5000 UNITS/1 ML VIAL SQ SCH ×2 (08:25→21:00)
[2021-01-28] MEDS: INSULIN REGULAR, HUMAN 100 UNIT/ML 3 ML VIAL SQ PRN ×4 (08:26→21:38)
--- NOTE | 2021-01-28 08:44 | NUR ---
RN NOTE URINE COLLECTED. AWAITING LAB INSOLE TAPER.
[2021-01-28 09:48] LABS: BASOPHILS % (AUTO) 0.4 % (0.0-2.0); EOSINOPHILS % (AUTO) 6.4 % (0.0-6.0); HEMATOCRIT 36 % (33-45); HEMOGLOBIN 11.8 g/dL (11.5-14.8); LYMPHOCYTES # (AUTO) 0.9 K/uL (0.8-4.8); MEAN CORPUSCULAR HGB CONC 33 g/dl (31.0-36.0); MEAN CORPUSCULAR VOLUME 107 fL (82-100); MONOCYTES # (AUTO) 0.6 K/uL (0.1-1.30); MONOCYTES % (AUTO) 8.5 % (2.0-12.0); NEUTROPHILS # (AUTO) 5.1 K/uL (1.8-8.9); NEUTROPHILS % (AUTO) 71.7 % (43.0-81.0); PLATELET COUNT (AUTO) 169 K/uL (150-450); RED BLOOD CELL COUNT(AUTO) 3.34 MIL/uL (4.0-5.2); WHITE BLOOD COUNT (AUTO) 7.1 K/uL (4.3-11.0)
[2021-01-28] MEDS ORDERED: ACYCLOVIR IV 1 GM in IV D5W 250 ML IV SCH (12:30)
--- NOTE | 2021-01-28 15:26 | NUR ---
RN NOTE VZV PCR COLLECTED FROM LEFT FLANKS BLISTERS. DELIVERED TO LAB
[2021-01-28 16:00] VITALS: BP 146/68
[2021-01-28] MEDS: CEFEPIME 1 GM in IV D5W 50 ML IV SCH (16:30)
[2021-01-28 17:04] LABS: BILIRUBIN,URINE SMALL (NEGATIVE); COLOR,URINE YELLOW (YELLOW); LEUKOCYTE ESTERASE ,URINE MODERATE (NEGATIVE); NITRITE, URINE NEGATIVE (NEGATIVE); PROTEIN,URINE >=300 mg/dl (NEGATIVE); UGLUCOSE NEGATIVE (NEGATIVE); UROBILINOGEN,URINE 0.2 EU/dL (0.2)
--- NOTE | 2021-01-28 18:38 | NUR ---
RN CLOSING NOTE PATIENT IN BED, OBTUNDED, NON VERBAL. ON T-PIECE 3L VIA NASAL CANNULA, O2 SAT 100%. GTUBE IN PLACE, FEEDING WELL TOLERATED THROUGHOUT SHIFT. SIEGEL CATH PATENT AND INTACT. RIGHT UPPER CHEST PERMACATH IN PLACE, DRESSING DRY. IV ACCESS ON LEFT AC AND RIGHT FOREARM, NO SIGNS OF INFILTRATION. TURNED AND REPOSITIONED. BED LOCKED AND IN LOWEST POSITION. CALL LIGHT WITHIN REACH, ALL SAFETY MEASURES IMPLEMENTED. WILL ENDORSE TO PM SHIFT.
[2021-01-28 18:46] LABS: BACTERIA,URINE 1+ /HPF (None Seen); RBC,URINE 21-50 /HPF (0-2); SQUAMOUS EPITHELIAL CELL,UR Few /HPF (None Seen); WBC,URINE 81-100 /HPF (0-3)
[2021-01-28 18:47] LABS: YEAST,URINE Few /HPF (None Seen)
--- NOTE | 2021-01-28 19:30 | NUR ---
RN NOTE RECEIVED PATIENT ON ISOLATION FOR CRE KLEB, SHINGLES AND R/O COVID. PATIENT IN BED. NONVERBAL, OPENS EYES. ON OXYGEN 3L/MIN VIA T-PIECE. RESPIRATIONS ARE EVEN AND UNLABORED. NO S/S SOB NOTED. SUCTIONED THICK YELLOW/ CLAROS SECRETIONS. NO S/S PAIN NOTED. IN NO APPARENT DISTRESS. IV ACCESS IN LAC RFA#20 AND RIGHT CHEST WALL PERMACATH. SIEGEL CATHETER IS PRESENT, DRAINING TO GRAVITY, URINE IS YELLOW. GTUBE IS PRESENT, NO RESIDUAL, STARTED FEEDING NEPRO @45ML.HR. BED IS LOW AND LOCKED,HOB ELEVATED IN SEMI FOWLERS, SIDE RAILS UP X3, CALL LIGHT WITHIN REACH. WILL CONTINUE TO MONITOR THROUGHOUT SHIFT.
[2021-01-28 20:00] VITALS: BP 142/68
--- NOTE | 2021-01-28 20:12 | NUR ---
RT neb tx not given. pending pcr.
--- NOTE | 2021-01-28 21:15 | NUR ---
RN NOTE OBTAINED VERBAL CONSENT FOR HEMODIALYSIS VIA TELEPHONE FROM PATIENTS DAUGHTER SHANTELL WOODS SECOND WITNESS CRISTOFER JOHNSON. CONSENT PLACED IN CHART.
--- NOTE | 2021-01-29 01:06 | NUR ---
RN NOTE HD RN FINISHED, REMOVED 1.5L, BP 168/70 HR 68.
[2021-01-29] MEDS: IPRATROPIUM NEB FS 0.5 MG/2.5 ML AMPUL.NEB NEB SCH ×6 (03:30→23:58)
[2021-01-29] MEDS: ALBUTEROL FS 2.5 MG/3 ML VIAL.NEB NEB SCH ×6 (03:30→23:58)
[2021-01-29 04:00] VITALS: BP 146/64
[2021-01-29] MEDS: NEPRO 1,000 ML BOTTLE GT SCH ×2 (05:14→19:16)
--- NOTE | 2021-01-29 06:18 | NUR ---
RN NOTE ISOLATION FOR CRE KLEB, SHINGLES AND R/O COVID. PATIENT IN BED. NONVERBAL, OPENS EYES. REMAINS ON OXYGEN 3L/MIN VIA T-PIECE. NO RESP DISTRESS. SUCTIONED THICK YELLOW/ CLAROS SECRETIONS 100CC. NO S/S PAIN. NO DISTRESS. IV MAINTAINED IN LAC RFA#20 AND RIGHT CHEST WALL PERMACATH. SIEGEL CATHETER OUTPUT 50 CC. GTUBE RUNNING NEPRO @45ML/HR. BED REMAINS LOW AND LOCKED,HOB ELEVATED IN SEMI FOWLERS, SIDE RAILS UP X3, CALL LIGHT WITHIN REACH. WILL ENDORSE TO ONCOMING SHIFT
[2021-01-29 06:46] LABS: HEMATOCRIT 34 % (33-45); HEMOGLOBIN 11.5 g/dL (11.5-14.8); LYMPHOCYTES % (AUTO) 17.4 % (20.0-44.0); MEAN CORPUSCULAR HGB CONC 34 g/dl (31.0-36.0); MEAN CORPUSCULAR VOLUME 106 fL (82-100); NEUTROPHILS % (AUTO) 66.2 % (43.0-81.0); PLATELET COUNT (AUTO) 160 K/uL (150-450); RED BLOOD CELL COUNT(AUTO) 3.22 MIL/uL (4.0-5.2); WHITE BLOOD COUNT (AUTO) 6.1 K/uL (4.3-11.0)
[2021-01-29 06:47] LABS: BASOPHILS % (AUTO) 0.5 % (0.0-2.0); EOSINOPHILS % (AUTO) 6.4 % (0.0-6.0); LYMPHOCYTES # (AUTO) 1.1 K/uL (0.8-4.8); MONOCYTES # (AUTO) 0.6 K/uL (0.1-1.30); MONOCYTES % (AUTO) 9.5 % (2.0-12.0); NEUTROPHILS # (AUTO) 4.1 K/uL (1.8-8.9)
[2021-01-29 07:16] LABS: CALCIUM, SERUM 8.5 mg/dL (8.5-10.1); CREATININE 1.5 mg/dL (0.6-1.3); MAGNESIUM 2.1 mg/dL (1.8-2.4); PHOSPHORUS 1.6 mg/dL (2.5-4.9); POTASSIUM 3.3 mmol/L (3.5-5.1)
--- NOTE | 2021-01-29 07:41 | NUR ---
TELE NURSE OPENING NOTE RECEIVE REPORT FROM OBSTETRICS NURSE PRACTITIONER NURSE. PATIENT IS NON VERBAL. RECEIVE OXYGEN THROUGH T-PIECE WITH 3L. PENDING SKIN CULTURE RESULT FOR SUSPECTING SHINGLE. PATIENT WAS STABLE AT TIME OF REPORT. SAFETY MEASURE IN PLACE. APPROPRIATE ISOLATION PRECAUTION IN PLACE. WILL CONTINUE TO MONITOR.
[2021-01-29 08:00] VITALS: BP 194/85
[2021-01-29] MEDS: BLOOD SUGAR DIAGNOSTIC 1 EACH STRIP IN SCH ×4 (08:10→21:34)
[2021-01-29] MEDS: INSULIN REGULAR, HUMAN 100 UNIT/ML 3 ML VIAL SQ PRN ×4 (08:15→21:42)
[2021-01-29] MEDS: BUMETANIDE (1 MG) 1 MG TABLET GT SCH (09:10)
[2021-01-29] MEDS: CHLORHEXIDINE GLUCONATE 15 ML UDC MM SCH ×2 (09:10→21:34)
[2021-01-29] MEDS: AMLODIPINE BESYLATE 5 MG TABLET GT SCH (09:11)
[2021-01-29] MEDS: METOPROLOL TARTRATE 25 MG TABLET GT SCH ×2 (09:11→21:34)
[2021-01-29] MEDS: Z GUARD REMEDY 2 OZ OINT TP PRN (09:12)
[2021-01-29] MEDS: HEPARIN SODIUM, PORCINE 5000 UNITS/1 ML VIAL SQ SCH ×2 (09:20→21:35)
[2021-01-29] MEDS: POTASSIUM PHOSPHATE MM 15 MMOL in IV NS 0.9% 250 ML IV SCH ×2 (09:46→13:54)
[2021-01-29] MEDS: CHLORHEXIDINE GLUCONATE 4% 118 ML BOTTLE TP SCH (09:57)
[2021-01-29] MEDS: NYSTATIN TOP POWDER 15 GM BOTTLE TP SCH (09:57)
[2021-01-29] MEDS: PANTOPRAZOLE 40 MG/PACK PACK GT SCH ×2 (10:11→21:34)
[2021-01-29] MEDS ORDERED: POTASSIUM CL. PREMIX PERIPHER. 50 ML IV SCH (11:00)
[2021-01-29] MEDS ORDERED: ACYCLOVIR IV 500 MG in IV D5W 100 ML IV SCH (12:30)
--- NOTE | 2021-01-29 13:34 | NUR ---
TELE NURSE NOTE UNABLE TO ADMINISTER ZOVIRAX IV 330MG ON TIME. WILL HAVE TO BE MIXED BY PHARMACY.
[2021-01-29] MEDS: ACYCLOVIR IV SCH (13:38)
[2021-01-29] MEDS: D5W IV SCH (13:38)
[2021-01-29] MEDS: CEFEPIME 1 GM in IV D5W 50 ML IV SCH (15:49)
[2021-01-29 16:00] VITALS: BP 160/84
--- NOTE | 2021-01-29 18:23 | NUR ---
TELE NURSE CLOSING NOTE PATIENT REMAIN STABLE THROUGHOUT SHIFT. OXYGEN SATING AT 100%. CONTINUE TO RECEIVE 3L OF OXYGEN THROUGH T-PIECE. REMAIN NON-VERBAL, OPEN EYES WHEN CALLED. SIEGEL IN PLACE. TOTAL SIEGEL DRAIN IS 250ML. DRESSING OF SACRAL WOUND CHANGED. LAC IV AND RFA IV REMAIN PATTEN AND FLUSH WELL. LAST BLOOD SUGAR WAS 283. TREAT WITH 6 UNITS OF INSULIN. POTASSIUM MORNING LAB WAS 3.2. 2 UNITS OF POTASSIUM PHOSPHATE WAS GIVEN PER DOCTOR ORDERS. MULTIPLE CULTURE PENDING: URINE CULTURE, RESPIRATORY SPUTUM CULTURE (RT WILL OBTAIN). PATIENT WAS TURN EVERY 2 HOURS PER PROTOCOL. SAFETY MEASURE IN PLACE. BED IN LOWEST POSITION WITH HOB ELEVATED. ALARM ON. 3 SIDE RAIL UP. WILL CONTINUE TO MONITOR AND ENDORSE TO ON COMING NURSE.
[2021-01-29 20:00] VITALS: BP 145/60
[2021-01-29] MEDS: ACETAMINOPHEN 325 MG TABLET PO PRN (21:34)
[2021-01-30] MEDS: ALBUTEROL FS 2.5 MG/3 ML VIAL.NEB NEB SCH ×6 (03:54→23:57)
[2021-01-30] MEDS: IPRATROPIUM NEB FS 0.5 MG/2.5 ML AMPUL.NEB NEB SCH ×6 (03:54→23:57)
[2021-01-30 04:00] VITALS: BP 143/71
[2021-01-30] MEDS: NEPRO 1,000 ML BOTTLE GT SCH (06:06)
[2021-01-30 06:31] LABS: BASOPHILS % (AUTO) 0.2 % (0.0-2.0); HEMATOCRIT 34 % (33-45); HEMOGLOBIN 11.1 g/dL (11.5-14.8); LYMPHOCYTES # (AUTO) 0.9 K/uL (0.8-4.8); LYMPHOCYTES % (AUTO) 14.9 % (20.0-44.0); MEAN CORPUSCULAR HGB CONC 33 g/dl (31.0-36.0); MEAN CORPUSCULAR VOLUME 107 fL (82-100); MONOCYTES # (AUTO) 0.6 K/uL (0.1-1.30); MONOCYTES % (AUTO) 10.6 % (2.0-12.0); NEUTROPHILS # (AUTO) 4.2 K/uL (1.8-8.9); NEUTROPHILS % (AUTO) 72.3 % (43.0-81.0); PLATELET COUNT (AUTO) 145 K/uL (150-450); RED BLOOD CELL COUNT(AUTO) 3.17 MIL/uL (4.0-5.2); WHITE BLOOD COUNT (AUTO) 5.7 K/uL (4.3-11.0)
[2021-01-30] MEDS: BLOOD SUGAR DIAGNOSTIC 1 EACH STRIP IN SCH ×4 (07:39→22:11)
[2021-01-30] MEDS: INSULIN REGULAR, HUMAN 100 UNIT/ML 3 ML VIAL SQ PRN ×3 (07:42→22:10)
[2021-01-30 08:00] VITALS: BP 149/72
[2021-01-30] MEDS ORDERED: POTASSIUM PHOSPHATE MM 15 MMOL in IV NS 0.9% 250 ML IV SCH (08:00)
[2021-01-30] MEDS ORDERED: POTASSIUM PHOSPHATE MM 7.5 MMOL in IV NS 0.9% 100 ML IV SCH (08:30)
[2021-01-30] MEDS: CHLORHEXIDINE GLUCONATE 15 ML UDC MM SCH ×2 (08:37→21:55)
[2021-01-30] MEDS: BUMETANIDE (1 MG) 1 MG TABLET GT SCH (08:38)
[2021-01-30] MEDS: AMLODIPINE BESYLATE 5 MG TABLET GT SCH (08:39)
[2021-01-30] MEDS: PANTOPRAZOLE 40 MG/PACK PACK GT SCH ×2 (08:40→21:55)
[2021-01-30] MEDS: HEPARIN SODIUM, PORCINE 5000 UNITS/1 ML VIAL SQ SCH ×2 (08:41→22:10)
[2021-01-30] MEDS: METOPROLOL TARTRATE 25 MG TABLET GT SCH ×2 (08:42→21:55)
[2021-01-30] MEDS: D5W IV SCH (08:43)
[2021-01-30] MEDS: ACYCLOVIR IV SCH (08:43)
--- NOTE | 2021-01-30 08:58 | NUR ---
WOUND CARE CONSULT: PT PRESENTS WITH RASH TO BUTTOCKS AND GROIN FOLDS, SCARRING TO SACRUM WITH INCONTINENCE ASSOCIATED SKIN DAMAGE OVER SCARRING, PRESENT ON ADMISSION WELL PEELING SKIN LESIONS TO BACK, LEFT BUTTOCK DRY LESION/DISCOLORATION AND RT HIP/PELVIC AREA HAS INTACT BLISTER. RECOMMENDATIONS MADE FOR SKIN PROTECTION. DISCUSSED WITH NURSING STAFF. PT IS ON [place] ISOFLEX LOW AIR LOSS BED. IN AGREEMENT WITH PLAN OF CARE. Addendum: 01/30/21 at 0900 by LEONCIO GONZALEZ WNDNU Amended: Links added.
[2021-01-30] MEDS: NYSTATIN TOP POWDER 15 GM BOTTLE TP SCH (09:13)
[2021-01-30] MEDS: CHLORHEXIDINE GLUCONATE 4% 118 ML BOTTLE TP SCH (09:14)
[2021-01-30] MEDS: CLOTRIMAZOLE 1% 15 GM TUBE TP SCH ×2 (11:10→17:53)
--- NOTE | 2021-01-30 11:38 | NUR ---
RN NOTES HELD POTASSIUM PHOSPHATE IV PER PHARMACY RECOMMENDATION.
[2021-01-30] MEDS ORDERED: Sodium Phosphate 30 MMOL in IV NS 0.9% 250 ML IV SCH (13:30)
[2021-01-30 16:00] VITALS: BP 135/70
--- NOTE | 2021-01-30 16:30 | NUR ---
RN NOTES PT RECEIVE HEMODIALYSIS. 1500ML FLUID REMOVED. NO NOTABLE CHANGES ON SHIFT.
[2021-01-30] MEDS: CEFEPIME 1 GM in IV D5W 50 ML IV SCH (16:38)
[2021-01-30 17:07] LABS: CALCIUM, SERUM 8.7 mg/dL (8.5-10.1); CREATININE 2.3 mg/dL (0.6-1.3); POTASSIUM 3.7 mmol/L (3.5-5.1)
--- NOTE | 2021-01-30 19:30 | NUR ---
RN OPENING NOTES: RECEIVED NON VERBAL PATIENT IN BED RESTING COMFORTABLY. PATIENT IN NO S/SX OF ACUTE DISTRESS AT THIS TIME. NO SOB NOTED. PATIENT'S BREATHING IS EVEN AND UNLABORED. PATIENT IS ON 5L OF OXYGEN VIA T-PIECE; TOLERATING WELL. PT ON MS STATUS. PT HAS G TUBE FLUSHING AND PATENT; SITE CLEAN DRY AND INTACT; 10CC RESIDUAL NOTED; CONNECTED TO GTUBE FEEDING OF NEPRO @55CC/HR;TOLERATES WELL. NOTED IV SITE ON L AC#20 AND R FA#20; BOTH PATENT, INTACT AND FLUSHING WELL; NO S/S OF INFECTION OR INFILTRATION. PT ALSO HAS R CHEST WALL HD CATH SECURED AND INTACT NO SIGNS OF INFECTION; LAST HD TODAY WITH OUTPUT OF 1500 PER AM SHIFT. SIEGEL CATH IN PLACE, NO URINE OUTPUT AT THE TIME OF RECEIVED. SAFETY MEASURES HAVE BEEN PROVIDED AND IMPLEMENTED. PATIENT BED ALARM IS ON. HEAD OF BED ELEVATED. BED IS LOCKED, IN LOWEST POSITION AND SIDE RAILS UP. CALL LIGHT WITHIN REACH OF THE PATIENT. APPLICABLE ISOLATION PRECAUTIONS IN PLACE. WILL CONTINUE TO MONITOR AND REASSESS FOR ANY CHANGES AND WILL CARRY OUT ANY ONGOING AND ACTIVE MD ORDER.
[2021-01-30 20:00] VITALS: BP 149/76
--- NOTE | 2021-01-31 | NUR ---
RN NOTES PATIENT REMAINED TO BE IN NO SIGNS OF ACUTE RESPIRATORY DISTRESS ; WILL CONTINUE TO MONITOR AND REASSESS FOR ANY CHANGES THROUGHOUT THE SHIFT.
[2021-01-31] MEDS: IPRATROPIUM NEB FS 0.5 MG/2.5 ML AMPUL.NEB NEB SCH ×6 (03:20→23:35)
[2021-01-31] MEDS: ALBUTEROL FS 2.5 MG/3 ML VIAL.NEB NEB SCH ×6 (03:20→23:35)
[2021-01-31 04:00] VITALS: BP 162/87
--- NOTE | 2021-01-31 04:00 | NUR ---
RN NOTES NOTED PT'S BP IS AT 162/87; PRN HYDRALAZINE GIVEN INDICATED. WILL RECHECK BP IN 30-45MINS. WILL CONTINUE TO MONITOR. OFFICE MAIL CLERK MADE AWARE. Addendum: 01/31/21 at 0437 by PARI GREENWOOD RN @0435 BP124/62 HR IS AT 96, WILL CONTINUE TO MONITOR AND ASSESS THROUGHOUT THE SHIFT
[2021-01-31] MEDS: hydrALAZINE HCL IV 20 MG VIAL IV PRN (04:04)
[2021-01-31 04:35] VITALS: BP 124/62
[2021-01-31 06:32] LABS: BASOPHILS % (AUTO) 0.3 % (0.0-2.0); EOSINOPHILS % (AUTO) 6.1 % (0.0-6.0); HEMATOCRIT 31 % (33-45); HEMOGLOBIN 10.5 g/dL (11.5-14.8); LYMPHOCYTES # (AUTO) 1.1 K/uL (0.8-4.8); LYMPHOCYTES % (AUTO) 21.6 % (20.0-44.0); MEAN CORPUSCULAR HGB CONC 34 g/dl (31.0-36.0); MEAN CORPUSCULAR VOLUME 106 fL (82-100); MONOCYTES # (AUTO) 0.7 K/uL (0.1-1.30); MONOCYTES % (AUTO) 14.4 % (2.0-12.0); NEUTROPHILS # (AUTO) 2.9 K/uL (1.8-8.9); NEUTROPHILS % (AUTO) 57.6 % (43.0-81.0); PLATELET COUNT (AUTO) 136 K/uL (150-450); RED BLOOD CELL COUNT(AUTO) 2.91 MIL/uL (4.0-5.2)
--- NOTE | 2021-01-31 06:45 | NUR ---
RN CLOSING NOTE: PATIENT REMAINS IN ROOM IN NO SIGNS OF RESPIRATORY DISTRESS, PATIENT STILL ON 5L OF 02 VIA T-PIECE ;TOLERATING WELL SATURATING @ >95% SP02. SAFETY MEASURES IMPLEMENTED, BED IN LOWEST POSITION, LOCKED, SIDE RAILS UP, CALL LIGHT WITHIN REACH. ALL NEEDS AND ORDERS ADDRESSED DURING THE SHIFT. IV ACCESS MAINTAINED INTACT, SECURED AND FLUSHING WELL. ALL DUE MEDS GIVEN ORDERED & SCHEDULED ; PATIENT TOLERATED WELL. PATIENT KEPT CLEAN AND COMFORTABLE WITHIN THE SHIFT. PATIENT ENDORSED TO INCOMING SHIFT RN WITH STABLE VITAL SIGN AND FOR CONTINUITY OF CARE.
[2021-01-31] MEDS: BLOOD SUGAR DIAGNOSTIC 1 EACH STRIP IN SCH ×4 (07:40→21:46)
[2021-01-31] MEDS: INSULIN REGULAR, HUMAN 100 UNIT/ML 3 ML VIAL SQ PRN ×4 (07:45→21:50)
[2021-01-31 08:05] VITALS: BP 128/73
--- NOTE | 2021-01-31 08:08 | NUR ---
received awake no acute distress,vss.
--- NOTE | 2021-01-31 08:17 | NUR ---
NURSE OPENING NOTE RECEIVE REPORT FROM VP INFORMATICS NURSE. PATIENT IN STABLE CONDITION AT TIME OF REPORT. PATIENT RECEIVING OXYGEN THROUGH T-PIECE AT 5L. NON VERBAL. REACT TO SOUND AND TOUCH. O2 Sat 100%. WILL FOLLOW UP AM LAB. SAFETY MEASURE IN PLACE. PROPER ISOLATION PRECAUTION IN PLACE. BED IN LOWEST POSITION WITH HOB ELEVATED. WILL CONTINUE TO MONITOR.
[2021-01-31] MEDS: CHLORHEXIDINE GLUCONATE 15 ML UDC MM SCH ×2 (08:49→21:55)
[2021-01-31] MEDS: METOPROLOL TARTRATE 25 MG TABLET GT SCH ×2 (08:49→21:32)
[2021-01-31] MEDS: PANTOPRAZOLE 40 MG/PACK PACK GT SCH ×2 (08:49→21:32)
[2021-01-31] MEDS: AMLODIPINE BESYLATE 5 MG TABLET GT SCH (08:50)
[2021-01-31] MEDS: BUMETANIDE (1 MG) 1 MG TABLET GT SCH (08:51)
[2021-01-31] MEDS: HEPARIN SODIUM, PORCINE 5000 UNITS/1 ML VIAL SQ SCH ×2 (08:52→21:34)
[2021-01-31] MEDS: CHLORHEXIDINE GLUCONATE 4% 118 ML BOTTLE TP SCH (08:56)
[2021-01-31] MEDS: CLOTRIMAZOLE 1% 15 GM TUBE TP SCH ×2 (08:56→16:33)
[2021-01-31] MEDS: NYSTATIN TOP POWDER 15 GM BOTTLE TP SCH (08:57)
[2021-01-31] MEDS: ACYCLOVIR IV SCH (09:26)
[2021-01-31] MEDS: D5W IV SCH (09:26)
--- NOTE | 2021-01-31 10:26 | NUR ---
NURSE NOTE INSULIN MEHREEN NOT IN PATIENT CASET Addendum: 01/31/21 at 1028 by TRAVIS DUMONT RN NURSE NOTE GODWIN BUENO NOT IN PATIENT CASSETTE. NOTIFY PHARMACY.
[2021-01-31] MEDS: INSULIN GLARGINE, 100 UNIT/ML CARTRIDGE SQ SCH ×2 (10:54→21:48)
[2021-01-31] MEDS: NEPRO 1,000 ML BOTTLE GT SCH (11:49)
[2021-01-31 12:26] VITALS: BP 119/66
[2021-01-31] MEDS: CEFEPIME 1 GM in IV D5W 50 ML IV SCH (15:31)
--- NOTE | 2021-01-31 16:31 | NUR ---
followup specimen send out from vesicular fluids on back,per lab still pending.
--- NOTE | 2021-01-31 16:33 | NUR ---
confirmed by Diann from lab they received specimen and its a send out.
--- NOTE | 2021-01-31 18:07 | NUR ---
NURSE CLOSING NOTE PATIENT REMAIN STABLE WITH NOT SIGN OF DISTRESS. MAINTAINING 95-100% OXYGENATION THROUGH T-PIECE AT 5L. PERFORM SUCTIONING WHEN NEEDED. IV ACCESS INTACT AND FLUSH WELL. ALL MEDS GIVEN PER DAY SHIFT. PATIENT WAS CLEANED AND BED LINEN CHANGED. DOOR ROOM CLOSED. PROPER ISOLATION PRECAUTION IN PLACE PER AIR BORN (SHINGLE). AIR BORN ISOLATION CAN BE REMOVED WHEN VESICLE CRUST OVER OR VZV RESULT IS NEGATIVE. SAFETY MEASURE IN PLACE. BED IN LOWEST POSITION WITH 3 SIDE RAIL UP. HOB ELEVATED @30 DEGREE. BED ALARM ON. CALL LIGHT WITHIN REACH Addendum: 01/31/21 at 1823 by TRAVIS DUMONT RN WILL CONTINUE TO MONITOR AND ENDORSE TO ON COMING NURSE.
[2021-01-31 20:59] VITALS: BP 127/70
--- NOTE | 2021-01-31 21:36 | NUR ---
ANTICOAGULANT H/H 10.09/29 PLt 136 No symptoms of bleeding. Heparin injection given co-signed by ELIZABETH Bray.
--- NOTE | 2021-01-31 21:51 | NUR ---
ACCUCHECK Blood glucose 233 mg/dl Insulin per sliding scale given and Lantus as ordered. Co-signed by ELIZABETH'peggy.
[2021-02-01] MEDS: IPRATROPIUM NEB FS 0.5 MG/2.5 ML AMPUL.NEB NEB SCH ×6 (03:49→23:18)
[2021-02-01] MEDS: ALBUTEROL FS 2.5 MG/3 ML VIAL.NEB NEB SCH ×6 (03:49→23:17)
[2021-02-01 04:55] VITALS: BP 146/72
[2021-02-01] MEDS: NEPRO 1,000 ML BOTTLE GT SCH (05:20)
[2021-02-01 06:15] LABS: BASOPHILS % (AUTO) 0.3 % (0.0-2.0); EOSINOPHILS % (AUTO) 6.2 % (0.0-6.0); HEMATOCRIT 32 % (33-45); HEMOGLOBIN 10.6 g/dL (11.5-14.8); LYMPHOCYTES # (AUTO) 1.2 K/uL (0.8-4.8); MEAN CORPUSCULAR HGB CONC 33 g/dl (31.0-36.0); MEAN CORPUSCULAR VOLUME 106 fL (82-100); MONOCYTES # (AUTO) 0.7 K/uL (0.1-1.30); MONOCYTES % (AUTO) 11.3 % (2.0-12.0); NEUTROPHILS # (AUTO) 3.7 K/uL (1.8-8.9); NEUTROPHILS % (AUTO) 62.2 % (43.0-81.0); PLATELET COUNT (AUTO) 141 K/uL (150-450); RED BLOOD CELL COUNT(AUTO) 2.99 MIL/uL (4.0-5.2)
[2021-02-01] MEDS: BLOOD SUGAR DIAGNOSTIC 1 EACH STRIP IN SCH ×4 (06:23→22:35)
[2021-02-01] MEDS: INSULIN REGULAR, HUMAN 100 UNIT/ML 3 ML VIAL SQ PRN ×3 (06:26→21:15)
--- NOTE | 2021-02-01 06:26 | NUR ---
ACCUCHECK Blood glucose 245 mg/dl Insulin per sliding scale given Co-signed by ELIZABETH Chase.
--- NOTE | 2021-02-01 06:41 | NUR ---
END OF SHIFT REPORT Patient is non verbal, opens eye. Trach intact to cool aerosol Oxygen 5L. Oxygen sat in high 90's. Tmax 99.4F in the last 12hr. On IV Acyclovir. Pending VZV PCR from lesion on the back. Maintained on Airborne, Contact Isolation precaution. Araiza cath care done, urine yellow cloudy. Turned and repositioned. Will endorse to oncoming RN.
[2021-02-01 07:05] LABS: CALCIUM, SERUM 8.7 mg/dL (8.5-10.1); CREATININE 2.6 mg/dL (0.6-1.3); POTASSIUM 3.6 mmol/L (3.5-5.1)
[2021-02-01] MEDS ORDERED: CYCLOBENZAPRINE 10 MG TABLET ONE (07:39)
[2021-02-01] MEDS ORDERED: KETOROLAC TROMETHAMINE INJ 30 MG/ML VIAL ONE (07:39)
[2021-02-01 08:00] VITALS: BP 143/64
[2021-02-01] MEDS: D5W IV SCH (09:07)
[2021-02-01] MEDS: ACYCLOVIR IV SCH (09:07)
[2021-02-01] MEDS: CHLORHEXIDINE GLUCONATE 15 ML UDC MM SCH ×2 (09:07→20:36)
[2021-02-01] MEDS: CHLORHEXIDINE GLUCONATE 4% 118 ML BOTTLE TP SCH (09:08)
[2021-02-01] MEDS: NYSTATIN TOP POWDER 15 GM BOTTLE TP SCH (09:09)
[2021-02-01] MEDS: CLOTRIMAZOLE 1% 15 GM TUBE TP SCH ×2 (09:09→16:41)
[2021-02-01] MEDS: BUMETANIDE (1 MG) 1 MG TABLET GT SCH (09:12)
[2021-02-01] MEDS: AMLODIPINE BESYLATE 5 MG TABLET GT SCH (09:13)
[2021-02-01] MEDS: PANTOPRAZOLE 40 MG/PACK PACK GT SCH ×2 (09:13→20:36)
[2021-02-01] MEDS: ACETAMINOPHEN 325 MG TABLET PO PRN (09:13)
[2021-02-01] MEDS: METOPROLOL TARTRATE 25 MG TABLET GT SCH ×2 (09:14→20:36)
[2021-02-01] MEDS: HEPARIN SODIUM, PORCINE 5000 UNITS/1 ML VIAL SQ SCH ×2 (09:15→20:43)
[2021-02-01] MEDS: INSULIN GLARGINE, 100 UNIT/ML CARTRIDGE SQ SCH ×2 (09:27→21:13)
[2021-02-01 16:00] VITALS: BP 132/69
--- NOTE | 2021-02-01 17:00 | NUR ---
RN NOTES PT HAD ONE EPISODE OF EMESIS @1630. MEDICATED WITH ZOFRAN AND PAUSED THE NEPRO FEEDING.
--- NOTE | 2021-02-01 18:42 | NUR ---
RN NOTES PT RESTING IN SEMI-GOLDBERG'S POSITION, WITH NO S/SX OF ACUTE RESPIRATORY DISTRESS. PT O2 SATURATION IS 98% ON 5L (T-PIECE). PT HAD ONE BOWEL MOVEMENT ON SHIFT. RESUMED THE NEPRO @55ML/HR @1730 AFTER N/V RESOLVED. PENDING V2V PCR FROM LESIONS. FAMILY AT BEDSIDE. ALL NEEDS ATTENDED AT THIS TIME. SAFETY MEASURES IN PLACE WITH BED IN LOWEST LOCKED POSITION, AND CALL LIGHT WITHIN REACH.
--- NOTE | 2021-02-01 19:39 | NUR ---
MS RN NOTES RECEIVED ON SEMI FOWLERS POSITION,NON VERBAL,ON TRACH TO COOL AEROSOL AT 5L,O2 SAT 96%,BREATHING NON LABORED,ON DROPLET,CONTACT ISOLATION PRECAUTION,WITH NEPRO GT FEEDING AT 55ML/HR RATE,NOTED 5ML RESIDUAL VOLUME,SIEGEL CATH IN PLACE,SALINE LOCK RIGHT AND LEFT FOREARM INTACT AND PATENT.NOTED EDEMA ON BOTH LOWER EXTREMITIES,ELEVATE ON PILLOWS.WILL CONTINUE TO MONITOR STATUS.
[2021-02-01 21:00] VITALS: BP 122/69
--- NOTE | 2021-02-01 21:15 | NUR ---
MS RN NOTES ACCU-CHECK BLOOD SUGAR CHECK 148,COVERED WITH HUMULIN R 2 UNITS PER SLIDING SCALE,ALONG WITH LANTUS 7 UNITS SCHEDULED.GT FEEDING IN PROGRESS,TOLERATED WELL,NEGATIVE FOR N/V/D.
--- NOTE | 2021-02-02 03:30 | NUR ---
MS RN NOTES MORNING CARE RENDERED WITH CHRISTINA,TOLERATED WELL,REPOSITION,SUCTION ORALLY,WITH LOTS OF MUCUS INSIDE THE MOUTH,HOB ELEVATED.
[2021-02-02] MEDS: ALBUTEROL FS 2.5 MG/3 ML VIAL.NEB NEB SCH ×4 (03:55→16:07)
[2021-02-02] MEDS: IPRATROPIUM NEB FS 0.5 MG/2.5 ML AMPUL.NEB NEB SCH ×4 (03:55→16:06)
[2021-02-02] MEDS: NEPRO 1,000 ML BOTTLE GT SCH (04:13)
[2021-02-02 05:00] VITALS: BP 135/65
--- NOTE | 2021-02-02 06:17 | NUR ---
MS RN NOTES ON BED,A/O X1,NON VERBAL,TRACH TO COOL AEROSOL TOLERATED WELL,GT FEEDING IN PROGRESS,NO N,V,D NOTED.DNR,DNI,ENDORSE TO DAY NURSE FOR NIKOLE.
[2021-02-02 06:35] LABS: BASOPHILS % (AUTO) 0.3 % (0.0-2.0); EOSINOPHILS % (AUTO) 4.2 % (0.0-6.0); HEMATOCRIT 32 % (33-45); HEMOGLOBIN 10.9 g/dL (11.5-14.8); LYMPHOCYTES # (AUTO) 1.2 K/uL (0.8-4.8); LYMPHOCYTES % (AUTO) 22.5 % (20.0-44.0); MEAN CORPUSCULAR HGB CONC 34 g/dl (31.0-36.0); MEAN CORPUSCULAR VOLUME 106 fL (82-100); MONOCYTES # (AUTO) 0.6 K/uL (0.1-1.30); MONOCYTES % (AUTO) 11.8 % (2.0-12.0); NEUTROPHILS # (AUTO) 3.3 K/uL (1.8-8.9); NEUTROPHILS % (AUTO) 61.2 % (43.0-81.0); PLATELET COUNT (AUTO) 133 K/uL (150-450); RED BLOOD CELL COUNT(AUTO) 3.04 MIL/uL (4.0-5.2); WHITE BLOOD COUNT (AUTO) 5.4 K/uL (4.3-11.0)
--- NOTE | 2021-02-02 07:30 | NUR ---
MS RN NOTES RECEIVED ON PT IN BED, OPENS EYE,NON VERBAL,ON TRACH TO COOL AEROSOL AT 5L,O2 SAT 96%,BREATHING NON LABORED,ON DROPLET,CONTACT ISOLATION PRECAUTION,LFA G 20 & RFA G20 IV ACCESS BOTH FLUSHES WELL, SITE CLEAR. RC PERMACATH IN PLACE, CDI DRESSING. ONGOING NEPRO GT FEEDING AT 55ML/HR RATE X 20 HOURS,NOTED 5ML RESIDUAL VOLUME, ON 2100 OFF 1700. FLUSHED. SIEGEL CATH IN PLACE,NOTED EDEMA ON BOTH LOWER EXTREMITIES,ELEVATED ON PILLOWS., BED LOW LOCKED, SAFETY MEASURES IN PLACE, HOB ELEVATED, WILL TURN AND REPOSITION Q 2 HOURS. WILL CONTINUE TO MONITOR.
[2021-02-02] MEDS: BLOOD SUGAR DIAGNOSTIC 1 EACH STRIP IN SCH ×3 (07:41→16:57)
[2021-02-02 08:00] VITALS: BP 153/72
[2021-02-02] MEDS: PANTOPRAZOLE 40 MG/PACK PACK GT SCH (08:22)
[2021-02-02] MEDS: HEPARIN SODIUM, PORCINE 5000 UNITS/1 ML VIAL SQ SCH (08:24)
[2021-02-02] MEDS: INSULIN GLARGINE, 100 UNIT/ML CARTRIDGE SQ SCH (08:25)
[2021-02-02] MEDS: CHLORHEXIDINE GLUCONATE 15 ML UDC MM SCH (08:27)
[2021-02-02] MEDS: Z GUARD REMEDY 2 OZ OINT TP PRN (08:28)
[2021-02-02] MEDS: CHLORHEXIDINE GLUCONATE 4% 118 ML BOTTLE TP SCH (08:28)
[2021-02-02] MEDS: CLOTRIMAZOLE 1% 15 GM TUBE TP SCH ×2 (08:28→16:58)
--- NOTE | 2021-02-02 08:30 | NUR ---
MS RN NOTES HELD AMLODIPINE, METOPROLOL, BUMEX, AND ACYCLOVIR DUE TO PT RECEIVING HEMODIALYSIS. WILL GIVE ONCE DIALYSIS IS COMPLETE.
[2021-02-02] MEDS: METOPROLOL TARTRATE 25 MG TABLET GT SCH (09:00)
[2021-02-02] MEDS: ACYCLOVIR IV SCH (09:00)
[2021-02-02] MEDS: AMLODIPINE BESYLATE 5 MG TABLET GT SCH (09:00)
[2021-02-02] MEDS: D5W IV SCH (09:00)
[2021-02-02] MEDS: BUMETANIDE (1 MG) 1 MG TABLET GT SCH (09:00)
[2021-02-02 09:11] LABS: ALBUMIN 2.6 g/dL (3.4-5.0); BILIRUBIN,TOTAL 0.4 mg/dL (0.2-1.0); CALCIUM, SERUM 9.3 mg/dL (8.5-10.1); CREATININE 3.5 mg/dL (0.6-1.3); POTASSIUM 3.7 mmol/L (3.5-5.1); TOTAL PROTEIN, SERUM 7.4 g/dL (6.4-8.2)
[2021-02-02] MEDS: NYSTATIN TOP POWDER 15 GM BOTTLE TP SCH (09:24)
[2021-02-02] MEDS ORDERED: INSU100I30 SQ (10:44)
[2021-02-02] MEDS ORDERED: AMLO-212 GT (10:44)
[2021-02-02] MEDS: INSULIN REGULAR, HUMAN 100 UNIT/ML 3 ML VIAL SQ PRN (12:09)
--- NOTE | 2021-02-02 12:56 | NUR ---
MS RN NOTES HEMODIALYSIS COMPLETE, 2L REMOVED. LATEST BLOOD PRESSURE 123/65 AND HR 75. PT EXPERIENCING NO S/SX OF RESPIRATORY DISTRESS, HOB IN SEMI-FOWLERS POSITION WITH BED IN LOWEST LOCKED POSITION, CALL LIGHT WITHIN REACH.
[2021-02-02 13:02] VITALS: BP 103/61
[2021-02-02 16:00] VITALS: BP 125/70
--- NOTE | 2021-02-02 17:13 | NUR ---
ELIZABETH NOTES HD COMPLETED TODAY WITH 1 LITERS OUTPUT Addendum: 02/02/21 at 1831 by TEZ DAVIS RN CORRECTION: 2 LITERS OUTPUT
--- NOTE | 2021-02-02 18:56 | NUR ---
RN NOTES PT BEING PICKED UP BY [facility] TO [facility]. REPORT GIVEN TO DOTTIE FINLEY. PT IS STABLE ON TRACH COLLAR 5L WITH NO S/SX OF ACUTE RESPIRATORY DISTRESS. TWO IV ACCESS'S REMOVED (LEFT FA 20G AND RIGHT WRIST 20G). DRESSING PLACED. BELONGINGS LIST SIGNED AND IN THE CHART. DISCHARGE COORDINATED WITH RETAIL DELIVERY DRIVER.
== END 2021-02-02 18:56 | DRG 698 ==
LOC: ER 11:30 → MEDSG1 14:46 → TELE1 15:31 → MEDSG1 01-28 07:31
PROVIDERS: ADMIT Internal Medicine; ATTEND Internal Medicine
PROC: 5A1D70Z Performance of Urinary Filtration, Intermittent, Less than 6 Hours Per Day (ICD-10-PCS; principal; 2021-01-28)
DX: T83.518A Infection and inflammatory reaction due to other urinary catheter, initial encounter (principal); N18.6 End stage renal disease; R53.2 Functional quadriplegia; N39.0 Urinary tract infection, site not specified; I12.0 Hypertensive chronic kidney disease with stage 5 chronic kidney disease or end stage renal disease; J96.10 Chronic respiratory failure, unspecified whether with hypoxia or hypercapnia; E87.1 Hypo-osmolality and hyponatremia; G93.49 Other encephalopathy; K92.0 Hematemesis; J98.11 Atelectasis; J90 Pleural effusion, not elsewhere classified; E11.22 Type 2 diabetes mellitus with diabetic chronic kidney disease; Y84.6 Urinary catheterization as the cause of abnormal reaction of the patient, or of later complication, without mention of misadventure at the time of the procedure; Z99.2 Dependence on renal dialysis; Z93.0 Tracheostomy status; E87.6 Hypokalemia; D69.6 Thrombocytopenia, unspecified; E83.52 Hypercalcemia; Z66 Do not resuscitate; Z74.01 Bed confinement status; Z86.73 Personal history of transient ischemic attack (TIA), and cerebral infarction without residual deficits; Z87.440 Personal history of urinary (tract) infections; Z90.49 Acquired absence of other specified parts of digestive tract; Z98.2 Presence of cerebrospinal fluid drainage device; K21.9 Gastro-esophageal reflux disease without esophagitis; Z93.1 Gastrostomy status; Z20.822 Contact with and (suspected) exposure to COVID-19; K57.90 Diverticulosis of intestine, part unspecified, without perforation or abscess without bleeding; R13.10 Dysphagia, unspecified; Z79.4 Long term (current) use of insulin; Y92.89 Other specified places as the place of occurrence of the external cause
CPT/HCPCS: 31720; 36415; 71045-TC; 80048-TC; 80053-TC; 80076-TC; 81001; 82962-TC; 83605-TC; 83735-TC; 84100-TC; 84484-TC; 85025-TC; 85027-TC; 85730-TC; 87040-TC; 87081-TC; 87086-TC; 90935-TC; 94640-TC; 94664-TC; 94760-TC; 94762-TC; 94799-TC; A4217; A4623; A7526; G0378; J0133; J0360; J0692; J1644; J1815; J1885; J2405; J2543; J3370; J3480; J3490; J7030; J7040; J7050; J7060; U0003

== ENCOUNTER 2021-02-04 17:06 | Inpatient (IN) | payer OTHER ==
[~2021-02-04] VITALS: Ht 167.6 cm; Wt 63.5 kg
[~2021-02-04 17:06] MED LIST changes: -ACET100V5 GT; -AMIK250V13 IV; +AMIN30LI2 GT; -BISA10SU11 RC; -BLOO-668 IN; +CRAN3875 GT; +FOLI0.8T23 GT; +INSU100I30 SQ; -INSU100V27 SQ; -INSU100V7 SQ; -LANS30CA56 GT; -MAGN400O6 GT; +MENT71OI2 TP; -NA P133E RC; +ZINC1CAP3 GT; -ZINC56.713 TP
--- NOTE | 2021-02-04 17:20 | NUR ---
patient jose alfredo, from [facility], noted nausea vomiting. On trach, connected to the monitor and pulse ox. kept comfortable, will continue to monitor accordingly.
[2021-02-04] MEDS ORDERED: ONDANSETRON HCL/PF 4 MG/2 ML VIAL ONE (17:42)
[2021-02-04 17:55] LABS: HEMOGLOBIN 12.2 g/dL (11.5-14.8)
[2021-02-04] MEDS ORDERED: ALLA266C2 TP (17:58)
[2021-02-04] MEDS ORDERED: AMLO-213 GT (17:58)
[2021-02-04] MEDS ORDERED: NUT.237L67 GT (17:58)
[2021-02-04] MEDS ORDERED: CLOT15CR27 TP (17:58)
[2021-02-04] MEDS ORDERED: INSU100V7 SQ (17:58)
[2021-02-04] MEDS ORDERED: INSU100V3 SQ (17:58)
[2021-02-04] MEDS ORDERED: ONDANSETRON HCL/PF 4 MG/2 ML VIAL IVP ONE (18:00)
--- NOTE | 2021-02-04 18:00 | NUR ---
MOVE SHEET SUBMITTED.
[2021-02-04 18:09] LABS: BASOPHILS % (AUTO) 0.3 % (0.0-2.0); EOSINOPHILS % (AUTO) 5.7 % (0.0-6.0); HEMATOCRIT 37 % (33-45); LYMPHOCYTES # (AUTO) 1.5 K/uL (0.8-4.8); LYMPHOCYTES % (AUTO) 18.4 % (20.0-44.0); MEAN CORPUSCULAR HGB CONC 33 g/dl (31.0-36.0); MEAN CORPUSCULAR VOLUME 106 fL (82-100); MONOCYTES # (AUTO) 0.8 K/uL (0.1-1.30); MONOCYTES % (AUTO) 10.1 % (2.0-12.0); NEUTROPHILS # (AUTO) 5.3 K/uL (1.8-8.9); NEUTROPHILS % (AUTO) 65.5 % (43.0-81.0); PLATELET COUNT (AUTO) 183 K/uL (150-450); RED BLOOD CELL COUNT(AUTO) 3.48 MIL/uL (4.0-5.2); WHITE BLOOD COUNT (AUTO) 8.2 K/uL (4.3-11.0)
--- NOTE | 2021-02-04 18:18 | NUR ---
DR. GO FROM [facility] SPEAKING WITH DR. NULL.
[2021-02-04 18:19] LABS: ALANINE AMINOTRANSFERASE 20 U/L (12-78); ALKALINE PHOSPHATASE 138 U/L (46-116); ASPARTATE AMINOTRANSFERASE 19 U/L (15-37); BILIRUBIN,DIRECT 0.1 mg/dL (0.0-0.2); BILIRUBIN,TOTAL 0.5 mg/dL (0.2-1.0); CALCIUM, SERUM 9.9 mg/dL (8.5-10.1); CARBON DIOXIDE 29 mmol/L (21-32); CHLORIDE 95 mmol/L (98-107); CREATININE 3.9 mg/dL (0.6-1.3); GLUCOSE 203 mg/dL (74-106); LIPASE 133 U/L (73-393); POTASSIUM 3.8 mmol/L (3.5-5.1); SODIUM SERUM 132 mmol/L (136-145); TOTAL PROTEIN, SERUM 8.3 g/dL (6.4-8.2)
[2021-02-04 18:23] LABS: UREA NITROGEN, BLOOD 81 mg/dL (7-18)
--- NOTE | 2021-02-04 18:35 | NUR ---
covid swab collected and sent to lab.
[2021-02-04 18:45] LABS: BILIRUBIN,URINE MODERATE (NEGATIVE); COLOR,URINE DARK YELLOW (YELLOW); LEUKOCYTE ESTERASE ,URINE Moderate (NEGATIVE); NITRITE, URINE Negative (NEGATIVE); PROTEIN,URINE >=300 mg/dl (NEGATIVE); UGLUCOSE Negative (NEGATIVE); UROBILINOGEN,URINE 0.2 EU/dL (0.2)
[2021-02-04 18:51] LABS: BACTERIA,URINE Many /HPF (None Seen); RBC,URINE 21-50 /HPF (0-2); SQUAMOUS EPITHELIAL CELL,UR Few /HPF (None Seen)
[2021-02-04 18:52] LABS: YEAST,URINE Moderate /HPF (None Seen)
--- NOTE | 2021-02-04 19:54 | NUR ---
FAXED CLINICALS TO [facility] [phone] TEL [phone]
--- NOTE | 2021-02-04 20:36 | NUR ---
CALLED [facility] FOR UPDATE. WILL CONTACT US AT 2130
--- NOTE | 2021-02-04 22:14 | NUR ---
Mary elizalde in ED - 02/04/21 at 2214 by NETTA per aurelio more[facility] will accept. Dr Paredes requests new peer to peer
--- NOTE | 2021-02-04 22:14 | NUR ---
Per Rivera [facility] will accept pt. Dr Paredes requesting repeat MD to . [phone]
--- NOTE | 2021-02-04 23:19 | NUR ---
RECIEVED BED 102
[2021-02-04] MEDS ORDERED: VANCOMYCIN 1 GM VIAL ONE (23:26)
--- NOTE | 2021-02-04 23:27 | NUR ---
COVID SWAB COLLECETED AND SENT TO LAB
[2021-02-04] MEDS ORDERED: VANCOMYCIN 1 GM in IV D5W 250 ML IV ONE (23:30)
--- NOTE | 2021-02-04 23:31 | NUR ---
REPORT GIVEN TO UZIEL
--- NOTE | 2021-02-04 23:52 | NUR ---
PATIENT TRANSFERRED UNDER ACLS
[2021-02-05] VITALS: BP 130/57
[2021-02-05] MEDS ORDERED: ACETAMINOPHEN 650 MG/SUPP.RECT RC PRN
[2021-02-05] MEDS ORDERED: Z GUARD REMEDY 2 OZ OINT TP PRN
[2021-02-05] MEDS ORDERED: ALBUTEROL FS 2.5 MG/3 ML VIAL.NEB NEB PRN
[2021-02-05] MEDS ORDERED: MORPHINE SULFATE INJ 2 MG/ML DISP.SYRIN IV PRN
[2021-02-05] MEDS ORDERED: DEXTROSE 50%-WATER 50 ML DISP.SYRIN IV PRN
[2021-02-05] MEDS ORDERED: ONDANSETRON HCL/PF 4 MG/2 ML VIAL IVP PRN
[2021-02-05] MEDS ORDERED: IPRATROPIUM NEB FS 0.5 MG/2.5 ML AMPUL.NEB NEB PRN
--- NOTE | 2021-02-05 00:10 | NUR ---
RT NOTE PT TRANSFERRED TO [facility] ON T-MASK @ 8LPM. PLACED PT ON T-PIECE. TITRATED FIO2 TO 2LPM. SPO2 @ 99%, HR 79. MODERATE THICK YELLOW WHITE SECRETIONS NOTED. NO RESPIRATORY DISTRESS NOTED. WILL MONITOR CLOSELY.
[2021-02-05] MEDS: PANTOPRAZOLE 40 MG VIAL IV SCH ×2 (00:58→08:38)
[2021-02-05] MEDS: METOCLOPRAMIDE HCL 10 MG/2 ML VIAL IV SCH ×4 (00:58→18:04)
[2021-02-05] MEDS: BLOOD SUGAR DIAGNOSTIC 1 EACH STRIP IN SCH ×4 (00:59→18:01)
[2021-02-05] MEDS ORDERED: CEFEPIME 1 GM in IV D5W 50 ML IV SCH (01:00)
[2021-02-05] MEDS: INSULIN REGULAR, HUMAN 100 UNIT/ML 3 ML VIAL SQ PRN (01:06)
[2021-02-05] MEDS ORDERED: CEFEPIME 1 GM VIAL ONE (01:43)
[2021-02-05 04:00] VITALS: BP 118/53
[2021-02-05 07:07] LABS: BASOPHILS % (AUTO) 0.3 % (0.0-2.0); HEMATOCRIT 37 % (33-45); HEMOGLOBIN 12.4 g/dL (11.5-14.8); LYMPHOCYTES # (AUTO) 1.5 K/uL (0.8-4.8); MEAN CORPUSCULAR HGB CONC 34 g/dl (31.0-36.0); MEAN CORPUSCULAR VOLUME 105 fL (82-100); MONOCYTES # (AUTO) 0.8 K/uL (0.1-1.30); MONOCYTES % (AUTO) 12.1 % (2.0-12.0); NEUTROPHILS # (AUTO) 4.2 K/uL (1.8-8.9); NEUTROPHILS % (AUTO) 59.6 % (43.0-81.0); PLATELET COUNT (AUTO) 158 K/uL (150-450); RED BLOOD CELL COUNT(AUTO) 3.53 MIL/uL (4.0-5.2)
--- NOTE | 2021-02-05 07:10 | NUR ---
RN OPENING NOTES RECEIVED PT IN BED, A/O X1 OPENS EYES. ON TPIECE @2L O2. NO SOB OR ANY DISTRESS NOTED. NPO. LFA #18 INTACT, PATENT AND FLUSHED. RCW PERMACATH NOTED. SIEGEL CATH IN PLACE DRAINING YELLOW COLORED URINE. NO S/S OF PAIN NOTED. SAFETY MEAURES IN PLACE. BED LOCKED AND IN LOWEST POSITION WITH SIDE RAILS UP X3. WILL CONTINUE TO MONITOR.
[2021-02-05 07:40] LABS: CALCIUM, SERUM 9.7 mg/dL (8.5-10.1); CREATININE 4.1 mg/dL (0.6-1.3); MAGNESIUM 2.8 mg/dL (1.8-2.4); PHOSPHORUS 5.3 mg/dL (2.5-4.9); POTASSIUM 3.8 mmol/L (3.5-5.1)
[2021-02-05 08:00] VITALS: BP 103/55
[2021-02-05] MEDS: HEPARIN SODIUM, PORCINE 5000 UNITS/1 ML VIAL SQ SCH ×2 (08:41→20:09)
[2021-02-05 12:00] VITALS: BP 102/53
--- NOTE | 2021-02-05 15:30 | NUR ---
RN NOTES HD STARTED. VS STABLE.
[2021-02-05 16:00] VITALS: BP 108/56
--- NOTE | 2021-02-05 18:30 | NUR ---
RN NOTES HD DONE. OUTPUT OF 500ML. VS STABLE.
--- NOTE | 2021-02-05 19:32 | NUR ---
RN CLOSING NOTES NO SIGNIFICANT CHANGES THROUGHOUT THE SHIFT. NO SOB. ALL DUE MEDS GIVEN. NEEDS ATTENDED. SAFETY MEASURES IN PLACE. WILL ENDORSE TO NIGHT RN FOR NIKOLE.
[2021-02-05 20:00] VITALS: BP 154/69
--- NOTE | 2021-02-05 20:00 | NUR ---
Mary Rn notes Received pts in bed on tpeice awake non verbal at 2 liters of o2 .sating 99% v/s stable afebrile no sob no distress noted . npo status with left fa G18 intact and patent ,right cw permacath as hd access , with f/c intact and patent draining with yellowish urine output all needs attended too call light within reach kept pts clean dry and comfortable.will continue to monitor pts.
[2021-02-05] MEDS ORDERED: KEY,NONCONTROL,TO KEEP IN PYXI 1 EA MC ONE (20:45)
--- NOTE | 2021-02-05 21:30 | NUR ---
eliane rn notes liza charge nurse [facility]
--- NOTE | 2021-02-05 22:35 | NUR ---
2234 Maikol called again regarding CCT ETA in one hour.
--- NOTE | 2021-02-05 22:58 | NUR ---
2254 WAREHOUSE FOREMAN Goldstein in the unit and made aware of patient's pending transfer to [facility] he said he will do discharge summary and med recon.
--- NOTE | 2021-02-05 23:20 | NUR ---
Mary rn notes Place a call to [facility] tel [phone] ,Report given Rn María told her accepting doctor is dr jacobs .pts in stable condition at this time.
--- NOTE | 2021-02-05 23:35 | NUR ---
[id number] Spoke with patient's Silas Shaffer on the phone ([phone]) and notified him that patient is being transferred to [facility] and he agreed. Hospital bed and phone number provided.
--- NOTE | 2021-02-05 23:55 | NUR ---
eliane rn notes [facility] arrived report given , pts was greens picker via gurney with 2 emt and 1 Rn in stable condition. pts remains on t peice at 2 liters of o2 sating 98%
[2021-02-06] MEDS: INSULIN REGULAR, HUMAN 100 UNIT/ML 3 ML VIAL SQ PRN (00:05)
== END 2021-02-05 23:57 | disposition short-term general hospital (02) | DRG 73 ==
LOC: ER 17:10 → TELE-TD 23:21
PROVIDERS: ADMIT Nurse Practitioner Family; ATTEND Nurse Practitioner Family
PROC: 5A1D70Z Performance of Urinary Filtration, Intermittent, Less than 6 Hours Per Day (ICD-10-PCS; principal; 2021-02-05)
DX: E11.43 Type 2 diabetes mellitus with diabetic autonomic (poly)neuropathy (principal); G93.41 Metabolic encephalopathy; N18.6 End stage renal disease; E44.1 Mild protein-calorie malnutrition; I12.0 Hypertensive chronic kidney disease with stage 5 chronic kidney disease or end stage renal disease; J96.10 Chronic respiratory failure, unspecified whether with hypoxia or hypercapnia; N39.0 Urinary tract infection, site not specified; J98.11 Atelectasis; R11.2 Nausea with vomiting, unspecified; R53.2 Functional quadriplegia; K31.84 Gastroparesis; K21.9 Gastro-esophageal reflux disease without esophagitis; E11.22 Type 2 diabetes mellitus with diabetic chronic kidney disease; Z93.1 Gastrostomy status; Z99.2 Dependence on renal dialysis; D69.6 Thrombocytopenia, unspecified; J44.9 Chronic obstructive pulmonary disease, unspecified; Z66 Do not resuscitate; Z74.01 Bed confinement status; Z79.4 Long term (current) use of insulin; Z98.2 Presence of cerebrospinal fluid drainage device; Z90.49 Acquired absence of other specified parts of digestive tract; Z86.73 Personal history of transient ischemic attack (TIA), and cerebral infarction without residual deficits; Z86.19 Personal history of other infectious and parasitic diseases; Z93.0 Tracheostomy status; E88.09 Other disorders of plasma-protein metabolism, not elsewhere classified; Z20.822 Contact with and (suspected) exposure to COVID-19; R13.10 Dysphagia, unspecified; K80.20 Calculus of gallbladder without cholecystitis without obstruction
CPT/HCPCS: 31720; 36415; 71045-TC; 80048-TC; 80076-TC; 81001; 82962-TC; 83605-TC; 83690-TC; 83735-TC; 84100-TC; 84484-TC; 85025-TC; 87040-TC; 87086-TC; 90935-TC; 94640-TC; 94799-TC; A4623; A4624; A6253; A6403; C9113; C9803; G0378; J0692; J1644; J1815; J2405; J2765; J3370; J7030; J7060; U0003